=== PATIENT | female | born 1960 | race Caucasian/White ===

== ENCOUNTER 2017-07-25 01:52 | Emergency (ER) | payer OTHER ==
[2017-07-25] MEDS ORDERED: DICYCLOMINE 10 MG CAPSULE PO STA (02:01)
[2017-07-25] MEDS ORDERED: ONDANSETRON 4 MG/2 ML VIAL IVP STA ×2 (02:01→03:53)
[2017-07-25] MEDS ORDERED: SODIUM CHLORIDE 0.9% 1,000 ML IV ONE (02:01)
[2017-07-25 02:24] LABS: BASOPHILS # (AUTO) 0.1 10^3/uL (0.0-0.1); BASOPHILS % (AUTO) 0.8 %; EOSINOPHILS # (AUTO) 0.2 10^3/uL (0.0-0.7); EOSINOPHILS % (AUTO) 1.9 %; LYMPHOCYTES # (AUTO) 1.7 10^3/uL (1.5-3.5); LYMPHOCYTES % (AUTO) 19.4 %; MEAN CORPUSCULAR HEMOGLOBIN 22.6 pg (27.0-31.0); MEAN CORPUSCULAR HGB CONC 30.6 g/dL (32.0-36.0); MEAN CORPUSCULAR VOLUME 73.9 fL (81.0-99.0); MEAN PLATELET VOLUME 8.9 fL (7.9-10.8); MONOCYTES # (AUTO) 0.6 10^3/uL (0.0-1.0); MONOCYTES % (AUTO) 7.2 %; NEUTROPHILS # (AUTO) 6.1 10^3/uL (1.5-6.6); NEUTROPHILS % (AUTO) 70.7 %; PLT - PLATELET COUNT 271 10^3/uL (130-450); RED BLOOD COUNT 3.98 10^6/uL (4.20-5.40); RED CELL DISTRIBUTION WIDTH 17.5 % (12.0-15.0); WHITE BLOOD COUNT 8.6 x10^3/uL (4.8-10.8)
[2017-07-25 02:37] LABS: ALBUMIN 4.4 g/dL (3.2-5.5); ALBUMIN/GLOBULIN RATIO 1.3 (1.0-2.2); BILIRUBIN,TOTAL 0.3 mg/dL (0.2-1.0); CALCIUM 9.3 mg/dL (8.5-10.3); CREATININE 0.7 mg/dL (0.4-1.0); TOTAL PROTEIN 7.7 g/dL (6.7-8.2)
--- NOTE | 2017-07-25 02:40 | ED Physician Documentation ---
PD HPI ABD PAIN - Stated complaint Stated Complaint: ABDOMINAL PAIN - Chief complaint Chief Complaint: Abd Pain - History obtained from History obtained from: Patient - History of Present Illness Timing - onset: Today Timing - details: Gradual onset, Still present Quality: Cramping, Aching, Indigestion Location: Epigastric Worsened by: Eating, Position, Palpation Associated symptoms: Nausea. No: Fever, Vomiting, Hematemesis, Diarrhea, Constipation Recently seen: Not recently seen - Additional information Additional information: patient is a 57 year old female with a history of prior cholecystectomy who is presenting to the emergency department for abdominal pain, nausea and abdominal distention. patient states that she at the [facility] this evening. Shortly after dinner she developed severe abdominal pain. patient tried drinking clarissa seltzer but her symptoms persisted so she came to the emergency department for evaluation. Review of Systems Constitutional: denies: Fever, Chills Cardiac: denies: Chest pain / pressure, Palpitations Respiratory: denies: Dyspnea, Cough, Wheezing GI: reports: Abdominal Pain, Abdominal Swelling, Nausea. denies: Vomiting : denies: Dysuria, Frequency, Hesitancy, Unable to Void Skin: denies: Rash Musculoskeletal: denies: Back pain Immunocompromised: denies: Immunocompromised PD PAST MEDICAL HISTORY - Past Medical History Cardiovascular: Atrial fibrillation, Arrhythmia Respiratory: None Endocrine/Autoimmune: None GI: None SCARFER: None : None HEENT: None Psych: None Musculoskeletal: None Derm: None - Past Surgical History Past Surgical History: Yes General: Cholecystectomy Ortho: Other /SCARFER: section HEENT: Tonsil/Adenoidectomy - Present Medications Home Medications: Ambulatory Orders Medication Instructions Recorded Confirmed Epinephrine [Epipen 2-Laz] 0.3 mg IJ ONCE PRN #1 unit 05/02/15 08/25/15 Estrogen,Con/M-Progest Acet 1.5 mg pe PO DAILY 05/02/15 08/25/15 [Prempro 0.45-1.5 mg Tablet] Sertraline [Zoloft] 25 mg PO DAILY 05/02/15 08/25/15 Zolpidem [Ambien] 5 mg PO HS 05/02/15 08/25/15 L Arginine 1,000 mg PO DAILY 08/25/15 08/25/15 Dicyclomine [Bentyl] 10 mg PO QID #14 capsule 07/25/17 Ondansetron Odt [Zofran] 4 mg TL Q6H PRN #14 tablet 07/25/17 Oxycodone HCl/Acetaminophen 1 - 2 each PO Q6H PRN #10 tablet 07/25/17 [Percocet 5-325 mg Tablet] - Allergies Allergies/Adverse Reactions: Allergies Allergy/AdvReac Type Severity Reaction Status Date / Time acetaminophen [From Vicodin] Allergy Unknown Verified 07/25/17 01:59 hydrocodone bitartrate * Allergy Unknown Verified 07/25/17 01:59 [From Vicodin] Penicillins Allergy Unknown Verified 07/25/17 01:59 Sulfa (Sulfonamide Allergy Unknown Verified 07/25/17 01:59 Antibiotics) PEANUTS AdvReac Anaphylaxis Uncoded 07/25/17 01:59 - Social History Does the pt smoke?: No Smoking Status: Never smoker Does the pt drink ETOH?: Yes Does the pt have substance abuse?: No - Immunizations Immunizations are current?: Yes - POLST Patient has POLST: No PD ED PE NORMAL - General General: Alert and oriented X 3 - HEENT HEENT: Atraumatic - Neck Neck: Supple, no meningeal sign - Cardiac Cardiac: RRR - Respiratory Respiratory: No respiratory distress - Derm Derm: Normal color, Warm and dry - Extremities Extremities: No deformity - Neuro Neuro: Alert and oriented X 3, No motor deficit, Normal speech Eye Opening: Spontaneous Motor: Obeys Commands - Psych Psych: Normal mood PD ED PE EXPANDED - General General: Alert, In Pain - Abdomen Abdomen: Tender to palpation, RUQ, Epigastric, LUQ, Other (obese). No: Rebound Results - Vitals Vitals: Vital Signs - 24 hr 07/25/17 07/25/17 07/25/17 01:56 03:47 05:24 Temperature 36.5 C Heart Rate 74 71 66 Respiratory 20 18 18 Rate Blood Pressure 155/71 H 147/65 H 129/66 O2 Saturation 94 98 95 Oxygen O2 Source Room air - Labs Labs: Laboratory Tests 07/25/17 07/25/17 07/25/17 02:20 02:20 03:50 WBC 8.6 RBC 3.98 L Hgb 9.0 L Hct 29.4 L MCV 73.9 L MCH 22.6 L MCHC 30.6 L RDW 17.5 H Plt Count 271 MPV 8.9 Neut # 6.1 Lymph # 1.7 [place] # 0.6 Eos # 0.2 Baso # 0.1 Absolute Nucleated RBC 0.00 Nucleated RBC % 0.0 Sodium 139 Potassium 3.6 Chloride 103 Carbon Dioxide 27 Anion Gap 9.0 BUN 15 Creatinine 0.7 Estimated GFR (MDRD) 86 L Glucose 110 H Calcium 9.3 Total Bilirubin 0.3 AST 28 ALT 32 Alkaline Phosphatase 69 Total Protein 7.7 Albumin 4.4 Globulin 3.3 Albumin/Globulin Ratio 1.3 Lipase 25 Urine Color YELLOW Urine Clarity CLEAR Urine pH 8.0 H Ur Specific [place] 1.010 Urine Protein NEGATIVE Urine Glucose (UA) NEGATIVE Urine Ketones NEGATIVE Urine Occult Blood NEGATIVE Urine Nitrite NEGATIVE Urine Bilirubin NEGATIVE Urine Urobilinogen 0.2 (NORMAL) Ur Leukocyte Esterase NEGATIVE Ur Microscopic Review NOT INDICATED Urine Culture Comments NOT INDICATED - Rads (name of study) abd x-ray Radiology: Final report received (loops of bowel possible sbo) ct abd pelvis Radiology: Final report received (findings more likely consistent with enteritis , less likely sbo. 5cm by 8cm cystic lesion of right adenexa), See rad report PD MEDICAL DECISION MAKING - ED course Complexity details: reviewed old records, reviewed results, re-evaluated patient , considered differential, d/w patient, d/w family ED course: Patient was seen and examined at bedside. IV access was gained labs were drawn. patient was treated with zofran and a fluid bolus. Patient was also treated with bentyl. abd series was ordered. When patient returned from imaging the results were reviewed. findings were suggestive of possibly sbo. Patient was treated with morphine for pain and CT was ordered. When patient returned from CT the results were reviewed. Findings were more consistent with enteritis as opposed to sbo. patient did have an incidental adenexal findings. The results were reviewed with patient and family. Observation was offered but patient stated that she would rather try at home. patient was given detailed discharge and follow up instructions. Patient had no episodes of vomiting while in the emergency department and was tolerating PO. Departure - Departure Disposition: 01 Home, Self Care Clinical Impression: Enteritis Condition: Good Instructions: ED Gastroenteritis Bacterial Follow-Up: Humberto Mays MD [Primary Care Provider] - Tomorrow Prescriptions: Dicyclomine [Bentyl] 10 mg PO QID #14 capsule Ondansetron Odt [Zofran] 4 mg TL Q6H PRN #14 tablet PRN Reason: Nausea / Vomiting Oxycodone HCl/Acetaminophen [Percocet 5-325 mg Tablet] 1 - 2 each PO Q6H PRN # 10 tablet PRN Reason: pain Comments: Your diagnostics today were consistent with enteritis/food poisoning. There is a chance, but less likely that it a bowel obstruction. If you don't have a bowel movement in the next 24 hours and or you have uncontrollable vomiting you should return to the emergency department for re-evaluation. You were also found to have an ovarian cyst. It is hard to say the exact etiology of your cyst and you will need to call your doctor today to schedule a pelvic ultrasound. Discharge Date/Time: 07/25/17 05:37
--- NOTE | 2017-07-25 02:57 | XRAY Preliminary Report ---
Exam: XR ABDOMEN ACUTE IMPRESSION: Findings concerning for small bowel obstruction. [facility] SITE ID: [id number]
--- NOTE | 2017-07-25 03:04 | XRAY Report ---
EXAM: ABDOMINAL SERIES AND PA CHEST EXAM DATE: 07/25/2017 02:40 AM. CLINICAL HISTORY: Abdominal pain and distention. COMPARISON: Chest x-ray 08/25/2015, CT abdomen 09/09/2010. TECHNIQUE: 2 views abdomen and 1 view chest. FINDINGS: CHEST: Lungs/Pleura: No focal opacities. No effusion or pneumothorax. Mediastinum: Within exam limitations, cardiomediastinal contour is normal. ABDOMEN: Bowel Gas Pattern: Mildly dilated small bowel loops with scattered air-fluid levels. No gross bowel w all thickening seen. Free Air: None. Other: Post-cholecystectomy. IMPRESSION: Findings concerning for small bowel obstruction. [facility] Referring Provider Line: [phone] SITE ID: [id number]
[2017-07-25] MEDS ORDERED: MORPHINE 10 MG/ML VIAL IVP STA (03:09)
[2017-07-25] MEDS ORDERED: IOPAMIDOL-300 100 ML VIAL ONE (03:16)
[2017-07-25] MEDS ORDERED: IOPAMIDOL-300 100 ML VIAL IVP ONE (03:36)
[2017-07-25 03:52] LABS: BILIRUBIN,URINE NEGATIVE (NEGATIVE); GLUCOSE, URINE (UA) NEGATIVE (NEGATIVE); KETONES,URINE (UA) NEGATIVE (NEGATIVE); LEUKOCYTE ESTERASE, URINE NEGATIVE (NEGATIVE); NITRITE,URINE NEGATIVE (NEGATIVE); OCCULT BLOOD,URINE NEGATIVE (NEGATIVE); PROTEIN,URINE NEGATIVE (NEGATIVE); UROBILINOGEN,URINE 0.2 (NORMAL) E.U./dL (NORMAL)
[2017-07-25 03:54] LABS: CLARITY,URINE CLEAR (CLEAR)
[2017-07-25] MEDS ORDERED: ONDANSETRON 4 MG/2 ML VIAL ONE (04:03)
--- NOTE | 2017-07-25 04:17 | CT Report ---
EXAM: CT ABDOMEN AND PELVIS EXAM DATE: 07/25/2017 03:40 AM. CLINICAL HISTORY: Abdominal pain, x-ray worrisome for small bowel obstruction. COMPARISONS: Acute abdominal series, 07/25/2017. CT, 09/09/2010. TECHNIQUE: Routine helical CT imaging was performed through the abdomen and pelvis. IV contrast: 100M L ISOVUE 300. Enteric contrast: No. Reconstructions: Coronal and sagittal. In accordance with CT protocol optimization, one or more of the following dose reduction techniques w ere utilized for this exam: automated exposure control, adjustment of mA and/or KV based on patient s ize, or use of iterative reconstructive technique. FINDINGS: Lung Bases: Mild bibasilar atelectasis. Heart size upper normal. Liver: Possible fatty infiltration. Gallbladder/Bile Ducts: Status post cholecystectomy. Spleen: Normal. Pancreas: Normal. Adrenal Glands: Normal. Kidneys: Normal. No masses or hydronephrosis. Peritoneal Cavity/Bowel: Multiple nonspecific normal caliber fluid-filled small bowel loops with air- fluid levels. No obvious transition zone. There is some liquid stool in the colon as well. No diverti culitis seen. No free air or free fluid. No lymphadenopathy. Appendix is retrocecal and appears angelo l. Pelvic Organs: Cystic lesion in the right adnexa measuring 8.0 x 5.4 cm. Visualized pelvic organs are otherwise unremarkable. Vasculature: Mild atherosclerosis. No aortic aneurysm. Bones: Degenerative changes in the spine with grade 1 degenerative spondylolisthesis at L4-L5. Other: None. IMPRESSION: 1. Multiple normal caliber fluid-filled small bowel loops. These are nonspecific. Mild enteritis coul d have this appearance. Low-grade obstruction not entirely excluded but considered less likely. 2. Appendix appears normal. 3. Cystic lesion in the right adnexa measuring 8.0 x 5.4 cm. Differential diagnosis would include ova yelena cyst, endometrioma, or cystic ovarian neoplasm. Ultrasound could be obtained for further evaluat ion. 4. Possible fatty liver. [facility] Referring Provider Line: [phone] SITE ID: [id number]
[2017-07-25] MEDS ORDERED: HYDROmorphone 2 MG/ML VIAL IVP STA (04:20)
[2017-07-25 05:25] VITALS: BP 129/66
[2017-07-25] MEDS ORDERED: ONDANSETRON ODT 4 MG Prepack 2 TL STA (05:27)
[2017-07-25] MEDS ORDERED: oxyCODONE/ACET 5/325 Prepack 4 PO STA (05:27)
== END 2017-07-25 05:37 | disposition home or self-care (01) ==
LOC: ED 01:52
DX: K52.9 Noninfective gastroenteritis and colitis, unspecified (principal); N83.201 Unspecified ovarian cyst, right side
CPT/HCPCS: 36415; 74022; 74177; 80053; 81003; 83690; 85025; 96374; 96375; 96376; 99283; 99284; A9270; J1170; Q9967; 81001; 87086

== ENCOUNTER 2019-02-01 19:23 | Outpatient (CLI) | payer OTHER | END 2019-02-01 19:24 | disposition short-term general hospital (02) | LOC: EMS 19:23 | PROVIDERS: ATTEND Surgery | DX: R07.9 Chest pain, unspecified (principal); R11.2 Nausea with vomiting, unspecified; R19.7 Diarrhea, unspecified | CPT/HCPCS: A0425; A0427 ==

== ENCOUNTER 2019-05-07 19:43 | Outpatient (CLI) | payer OTHER | END 2019-05-07 19:44 | disposition critical access hospital (66) | LOC: EMS 19:43 | PROVIDERS: ATTEND Surgery | DX: R00.0 Tachycardia, unspecified (principal); R10.13 Epigastric pain; M54.9 Dorsalgia, unspecified | CPT/HCPCS: A0425; A0429 ==

== ENCOUNTER 2019-08-08 18:52 | Outpatient (CLI) | payer OTHER | END 2019-08-08 18:53 | disposition short-term general hospital (02) | LOC: EMS 18:52 | PROVIDERS: ATTEND Surgery | DX: R10.9 Unspecified abdominal pain (principal); R11.2 Nausea with vomiting, unspecified | CPT/HCPCS: A0425; A0427 ==

== ENCOUNTER 2019-11-13 00:25 | Inpatient (IN) | payer OTHER ==
--- NOTE | 2019-11-13 00:28 | ED Physician Documentation ---
History of Present Illness - Stated complaint Stated Complaint: AB PX - History obtained from History obtained from: Patient - Additonal information Additional information: Patient is a 59-year-old female who presents with a chief complaint of abdominal pain. The patient reports that she has had previous small bowel obstructions and reports this feels similar in nature with nausea and vomiting and not passing gas. She has had a previous cholecystectomy as well as multiple sections. She denies fevers or dysuria or flank pain or syncope.Patient denies chest pain or shortness of breath. Review of Systems Constitutional: reports: Reviewed and negative Eyes: reports: Reviewed and negative Ears: reports: Reviewed and negative Nose: reports: Reviewed and negative Throat: reports: Reviewed and negative Cardiac: reports: Reviewed and negative Respiratory: reports: Reviewed and negative GI: reports: Abdominal Pain, Nausea, Vomiting : reports: Reviewed and negative Skin: reports: Reviewed and negative Musculoskeletal: reports: Reviewed and negative Neurologic: reports: Reviewed and negative Psychiatric: reports: Reviewed and negative Endocrine: reports: Reviewed and negative Immunocompromised: reports: Reviewed and negative PD PAST MEDICAL HISTORY - Past Medical History Cardiovascular: Atrial fibrillation, Arrhythmia Respiratory: None Endocrine/Autoimmune: None GI: None ROSTER CLERK: None : None HEENT: None Psych: None Musculoskeletal: None Derm: None - Past Surgical History Past Surgical History: Yes General: Cholecystectomy Ortho: Other /ROSTER CLERK: section HEENT: Tonsil/Adenoidectomy - Present Medications Home Medications: Ambulatory Orders Medication Instructions Recorded Confirmed EPINEPHrine [Epipen 2-Laz] 0.3 mg IJ ONCE PRN #1 unit 05/02/15 08/25/15 Estrogen,Con/M-Progest Acet 1.5 mg pe PO DAILY 05/02/15 08/25/15 [Prempro 0.45-1.5 mg Tablet] Sertraline [Zoloft] 25 mg PO DAILY 05/02/15 08/25/15 Zolpidem [Ambien] 5 mg PO HS 05/02/15 08/25/15 L Arginine 1,000 mg PO DAILY 08/25/15 08/25/15 Dicyclomine [Bentyl] 10 mg PO QID #14 capsule 07/25/17 Ondansetron Odt [Zofran] 4 mg TL Q6H PRN #14 tablet 07/25/17 Oxycodone HCl/Acetaminophen 1 - 2 each PO Q6H PRN #10 tablet 07/25/17 [Percocet 5-325 mg Tablet] - Allergies Allergies/Adverse Reactions: Allergies Allergy/AdvReac Type Severity Reaction Status Date / Time hydrocodone bitartrate * Allergy Unknown Verified 11/13/19 00:35 [From Vicodin] Penicillins Allergy Unknown Verified 11/13/19 00:35 Sulfa (Sulfonamide Allergy Unknown Verified 11/13/19 00:35 Antibiotics) PEANUTS AdvReac Anaphylaxis Uncoded 11/13/19 00:35 - Social History Does the pt smoke?: No Smoking Status: Never smoker Does the pt drink ETOH?: Yes Does the pt have substance abuse?: No - Immunizations Immunizations are current?: Yes - POLST Patient has POLST: No PD ED PE NORMAL - Vitals Vital signs reviewed: Yes - General General: Alert and oriented X 3, No acute distress, Well developed/nourished - HEENT HEENT: PERRL, Moist mucous membranes - Neck Neck: Supple, no meningeal sign - Cardiac Cardiac: RRR, No murmur, Strong equal pulses - Respiratory Respiratory: No respiratory distress, Clear bilaterally - Abdomen Abdomen: Normal bowel sounds, Soft, Other - Female Female : Pt declined - Rectal Rectal: Pt declined - Back Back: No CVA TTP, No spinal TTP - Derm Derm: Normal color, Warm and dry, No rash - Extremities Extremities: No deformity, No tenderness to palpate, Normal ROM s pain, No edema, No calf tenderness / cord - Neuro Neuro: Alert and oriented X 3, dental laboratory supervisor 2-12 intact, No motor deficit, No sensory deficit, Normal speech - Psych Psych: Normal mood, Normal affect Results - Vitals Vitals: Vital Signs - 24 hr 11/13/19 11/13/19 11/13/19 00:33 02:35 04:11 Temperature 36.8 C Heart Rate 71 70 69 Respiratory 24 18 17 Rate Blood Pressure 150/66 H 132/62 H 134/63 H O2 Saturation 98 98 98 Oxygen O2 Source Room air - EKG (time done) 02:05 Rate: Other (no stemi) - Labs Labs: Laboratory Tests 11/13/19 11/13/19 11/13/19 02:10 02:10 02:10 WBC 12.1 H RBC 3.44 L Hgb 8.3 L Hct 27.9 L MCV 81.1 MCH 24.1 L MCHC 29.7 L RDW 16.5 H Plt Count 221 MPV 10.4 Neut # (Auto) 10.4 H Lymph # (Auto) 0.9 L [place] # (Auto) 0.7 Eos # (Auto) 0.1 Baso # (Auto) 0.1 Absolute Nucleated RBC 0.00 Nucleated RBC % 0.0 PT 11.3 INR 1.0 APTT 28.4 Sodium 140 Potassium 4.0 Chloride 109 Carbon Dioxide 22 Anion Gap 9.0 BUN 18 Creatinine 0.7 Estimated GFR (MDRD) 85 L Glucose 117 H Lactic Acid Calcium 8.8 Total Bilirubin 0.5 AST 26 ALT 39 Alkaline Phosphatase 69 Total Creatine Kinase 139 Troponin I High Sens Total Protein 6.4 L Albumin 3.8 Globulin 2.6 Albumin/Globulin Ratio 1.5 Lipase 32 Urine Color Urine Clarity Urine pH Ur Specific [place] Urine Protein Urine Glucose (UA) Urine Ketones Urine Occult Blood Urine Nitrite Urine Bilirubin Urine Urobilinogen Ur Leukocyte Esterase Urine RBC Urine WBC Ur Squamous Epith Cells Urine Bacteria Ur Microscopic Review Urine Culture Comments Urine HCG, Qual 11/13/19 11/13/19 11/13/19 02:10 02:10 03:30 WBC RBC Hgb Hct MCV MCH MCHC RDW Plt Count MPV Neut # (Auto) Lymph # (Auto) [place] # (Auto) Eos # (Auto) Baso # (Auto) Absolute Nucleated RBC Nucleated RBC % PT INR APTT Sodium Potassium Chloride Carbon Dioxide Anion Gap BUN Creatinine Estimated GFR (MDRD) Glucose Lactic Acid 1.1 Calcium Total Bilirubin AST ALT Alkaline Phosphatase Total Creatine Kinase Troponin I High Sens 4.6 Total Protein Albumin Globulin Albumin/Globulin Ratio Lipase Urine Color YELLOW Urine Clarity CLEAR Urine pH 6.0 Ur Specific [place] 1.015 Urine Protein NEGATIVE Urine Glucose (UA) NEGATIVE Urine Ketones NEGATIVE Urine Occult Blood NEGATIVE Urine Nitrite NEGATIVE Urine Bilirubin NEGATIVE Urine Urobilinogen 0.2 (NORMAL) Ur Leukocyte Esterase TRACE H Urine RBC 0-5 Urine WBC 0-3 Ur Squamous Epith Cells FEW Squamous Urine Bacteria Rare Ur Microscopic Review INDICATED Urine Culture Comments INDICATED Urine HCG, Qual NEGATIVE PD MEDICAL DECISION MAKING - ED course Complexity details: considered differential (history is concerning for SBO) - Consults Consults: Discussed case with (dr. waterman, surgeon, will see as consult. also spoke with hospitalist dr. [email or web address] who agreed to accept this patient.) Departure - Departure Disposition: 66 [facility] DC/Xfer Clinical Impression: SBO (small bowel obstruction) Condition: Stable
[2019-11-13] MEDS ORDERED: fentaNYL 100 MCG/2 ML VIAL IVP STA ×2 (01:48→04:07)
[2019-11-13] MEDS ORDERED: ONDANSETRON 4 MG/2 ML VIAL IVP STA ×2 (01:48→03:27)
[2019-11-13] MEDS ORDERED: SODIUM CHLORIDE 0.9% 1,000 ML IV STA (01:48)
[2019-11-13 02:16] LABS: BASOPHILS # (AUTO) 0.1 10^3/uL (0.0-0.1); BASOPHILS % (AUTO) 0.4 %; EOSINOPHILS # (AUTO) 0.1 10^3/uL (0.0-0.7); EOSINOPHILS % (AUTO) 0.7 %; HGB - HEMOGLOBIN 8.3 g/dL (12.0-16.0); LYMPHOCYTES # (AUTO) 0.9 10^3/uL (1.5-3.5); LYMPHOCYTES % (AUTO) 7.2 %; MEAN CORPUSCULAR HEMOGLOBIN 24.1 pg (27.0-31.0); MEAN CORPUSCULAR HGB CONC 29.7 g/dL (32.0-36.0); MEAN CORPUSCULAR VOLUME 81.1 fL (81.0-99.0); MEAN PLATELET VOLUME 10.4 fL (7.9-10.8); MONOCYTES # (AUTO) 0.7 10^3/uL (0.0-1.0); MONOCYTES % (AUTO) 5.5 %; NEUTROPHILS # (AUTO) 10.4 10^3/uL (1.5-6.6); NEUTROPHILS % (AUTO) 85.6 %; PLT - PLATELET COUNT 221 10^3/uL (130-450); RED BLOOD COUNT 3.44 10^6/uL (4.20-5.40); RED CELL DISTRIBUTION WIDTH 16.5 % (12.0-15.0); WHITE BLOOD COUNT 12.1 x10^3/uL (4.8-10.8)
[2019-11-13 02:23] LABS: PT - PROTHROMBIN TIME 11.3 secs (9.9-12.6)
[2019-11-13 02:29] LABS: ALBUMIN 3.8 g/dL (3.2-5.5); ALBUMIN/GLOBULIN RATIO 1.5 (1.0-2.2); BILIRUBIN,TOTAL 0.5 mg/dL (0.2-1.0); CALCIUM 8.8 mg/dL (8.5-10.3); CREATININE 0.7 mg/dL (0.4-1.0); TOTAL PROTEIN 6.4 g/dL (6.7-8.2)
[2019-11-13 02:30] LABS: PARTIAL THROMBOPLASTIN TIME 28.4 secs (24.9-33.3)
[2019-11-13] MEDS ORDERED: IOVERSOL 320 100 ML VIAL IVP ONE ×2 (03:08→04:59)
[2019-11-13 03:40] LABS: BILIRUBIN,URINE NEGATIVE (NEGATIVE); GLUCOSE, URINE (UA) NEGATIVE (NEGATIVE); KETONES,URINE (UA) NEGATIVE (NEGATIVE); LEUKOCYTE ESTERASE, URINE TRACE (NEGATIVE); NITRITE,URINE NEGATIVE (NEGATIVE); OCCULT BLOOD,URINE NEGATIVE (NEGATIVE); PROTEIN,URINE NEGATIVE (NEGATIVE); UROBILINOGEN,URINE 0.2 (NORMAL) E.U./dL (NORMAL)
[2019-11-13 03:43] LABS: CLARITY,URINE CLEAR (CLEAR); HCG UR QUAL NEGATIVE
[2019-11-13 03:46] LABS: BACTERIA,URINE Rare /HPF (None Seen); RBC,URINE 0-5 /HPF (0-5); SQUAMOUS EPITHELIAL CELL,UR FEW Squamous (<= Few)
[2019-11-13] MEDS ORDERED: LIDOCAINE TOPICAL 4% 50 ML BOTTLE MM STA (05:11)
[2019-11-13] MEDS ORDERED: LORazepam 2 MG/ML VIAL IVP STA (05:13)
[2019-11-13] MEDS ORDERED: SODIUM CHLORIDE FLUSH 0.9% 10 ML SYRINGE IVP PRN (05:18)
[2019-11-13] MEDS ORDERED: HYDROmorphone 1 MG/ML CARPUJECT IVP PRN (05:24)
--- NOTE | 2019-11-13 05:24 | HISTORY & PHYSICAL EXAMINATION ---
Chief Complaint - Chief Complaint Chief Complaint: abdominal pain History of Present Illness - Admitted From Admitted From:: [facility] - History Obtained From Records Reviewed: Yes History obtained from: Patient - History of Present Illness HPI Comment/Other: Patient is a 59-year-old female with history of multiple abdominal surgeries and subsequently history of multiple small bowel obstructions who presented to the ED with complaint of abdominal pain. This started around 5 PM today. She describes it like a ball of bad sharp pain in her upper abdomen. She experienced similar episodes in November 2018, January 2019, May 2019 and August 2019. During her last episode she was taken to [facility].She had some homemade pizza before her pain intensified today. She has vomited approximately 6 times. She Denies chest pain, dyspnea, fever or chills. Work- up in the ED included a CT of the abdomen pelvis which showed early small bowel obstruction. She also had a white blood cell count of 12. Dr. Tran Brian with general surgery was contacted by the ED and is agreeable to see the patient in consult later in the day. History - Past Medical History Cardiovascular: reports: Atrial fibrillation, Arrhythmia Respiratory: reports: None Endocrine/Autoimmune: reports: None GI: reports: GERD VP & GENERAL COUNSEL: reports: None : reports: None HEENT: reports: None Psych: reports: None Musculoskeletal: reports: None Derm: reports: None MRSA Hx?: No - Past Surgical History General: reports: Cholecystectomy Ortho: reports: Other /VP & GENERAL COUNSEL: reports: section, Dilation and currettage, Oophrectomy (right) HEENT: reports: Tonsil/Adenoidectomy - Family & Social History Family History: Father: , Cancer (bladder cancer) Living arrangement: At home Living Situation: With spouse/s.o. Social History Notes: She does not use tobacco products or recreational substances. She drinks occasionally. - POLST Patient has POLST: No POLST Status: Full Code Meds/Allgy - Home Medications Home Medications: Ambulatory Orders Medication Instructions Recorded Confirmed EPINEPHrine [Epipen 2-Laz] 0.3 mg IJ ONCE PRN #1 unit 05/02/15 08/25/15 Estrogen,Con/M-Progest Acet 1.5 mg pe PO DAILY 05/02/15 08/25/15 [Prempro 0.45-1.5 mg Tablet] Sertraline [Zoloft] 25 mg PO DAILY 05/02/15 08/25/15 Zolpidem [Ambien] 5 mg PO HS 05/02/15 08/25/15 L Arginine 1,000 mg PO DAILY 08/25/15 08/25/15 Dicyclomine [Bentyl] 10 mg PO QID #14 capsule 07/25/17 Ondansetron Odt [Zofran] 4 mg TL Q6H PRN #14 tablet 07/25/17 Oxycodone HCl/Acetaminophen 1 - 2 each PO Q6H PRN #10 tablet 07/25/17 [Percocet 5-325 mg Tablet] - Allergies Allergies/Adverse Reactions: Allergies Allergy/AdvReac Type Severity Reaction Status Date / Time hydrocodone bitartrate * Allergy Unknown Verified 11/13/19 00:35 [From Vicodin] Penicillins Allergy Unknown Verified 11/13/19 00:35 Sulfa (Sulfonamide Allergy Unknown Verified 11/13/19 00:35 Antibiotics) PEANUTS AdvReac Anaphylaxis Uncoded 11/13/19 00:35 Review of Systems - Constitutional Constitutional: denies: Fatigue, Fever - Eyes Eyes: denies: Pain - Ears, Nose & Throat Ears, Nose & Throat: denies: Ear pain - Cardiovascular Cariovascular: denies: Irregular heart rate, Chest pain, Edema, Lightheadedness, Syncope - Respiratory Respiratory: denies: Cough, Sputum production, Wheezing - Gastrointestinal Gastrointestinal: reports: Abdominal pain, Nausea, Vomiting. denies: Abdominal distention, Constipation, Diarrhea - Genitourinary Genitourinary: denies: Dysuria, Frequency, Urgency, Hematuria - Musculoskeletal Musculoskeletal: denies: Muscle pain, Back pain, Muscle aches - Integumentary Integumentary: denies: Rash, Pruritis, Lesions - Neurological Neurological: denies: General weakness, Focal weakness, Headache - Psychiatric Psychiatric: reports: Anxiety. denies: Depression - Endocrine Endocrine: denies: Polyuria, Polydypsia - Hematologic/Lymphatic Hematologic/Lymphatic: denies: Anemia, Bruising Prior Level of Functionality: Patient is independent of activities of daily living Exam - Vital Signs Vital Signs: Vital Signs x48h Temp Pulse Resp BP Pulse Ox 11/13/19 04:11 69 17 134/63 H 98 11/13/19 02:35 70 18 132/62 H 98 11/13/19 00:33 36.8 C 71 24 150/66 H 98 - Physical Exam General Appearance: positive: Alert, Mild distress, Moderate distress Eyes Bilateral: positive: PERRL, EOMI ENT: positive: No signs of dehydration Neck: positive: No JVD, Trachea midline Respiratory: positive: Chest non-tender, No respiratory distress, Breath sounds nml. negative: Wheezes, Rales, Rhonchi Cardiovascular: positive: Regular rate & rhythm, No murmur Abdomen: positive: Nml bowel sounds, Tenderness. negative: Guarding, Rebound Back: positive: Nml inspection Skin: positive: Color nml, No rash, Warm, Dry Extremities: positive: Non-tender, Full ROM, Nml appearance, No pedal edema Neurologic/Psychiatric: positive: Oriented x3, Mood/affect nml Conclusion/Plan - Problem List (1) SBO (small bowel obstruction) Conclusion/Plan: Patient is n.p.o. IV hydration with normal saline at 125 mils per hour. Pain management with Dilaudid 1 mg every 2 hours as needed NG tube placed in the ED General surgery Dr. Tran Brian has been consulted. (2) Atrial fibrillation Conclusion/Plan: Patient is currently in normal sinus rhythm.Allison will monitor. Patient does not take any medication. Qualifiers: Atrial fibrillation type: paroxysmal Qualified Code(s): I48.0 - Paroxysmal atrial fibrillation (3) Anxiety Conclusion/Plan: On sertraline (4) Insomnia Conclusion/Plan: On zolpidem - Lab Results Fish Bones: 11/13/19 02:10 11/13/19 02:10 Core Measures - Anticipated LOS I expect patient to be DC'd or transferred within 96 hours.: Yes - DVT/VTE - Prophylaxis VTE/DVT Device ordered at admit?: Yes VTE/DVT Prophylaxis med ordered at admit?: Yes
[2019-11-13] MEDS ORDERED: SODIUM CHLORIDE INHALATION 3 ML NEB ONE (05:31)
[2019-11-13] MEDS ORDERED: SODIUM CHLORIDE 0.9% 1,000 ML IV SCH ×2 (06:00)
[2019-11-13] MEDS: PANTOPRAZOLE 40 MG VIAL IVP SCH (06:11)
[2019-11-13] MEDS: PHENOL THROAT SPRAY 177 ML MM PRN ×4 (06:54→18:40)
--- NOTE | 2019-11-13 07:55 | XRAY Report ---
PROCEDURE: Chest 1 View X-Ray INDICATIONS: Chest pain TECHNIQUE: One view of the chest was acquired. COMPARISON: 08/25/2015 FINDINGS: Surgical changes and devices: None. Lungs and pleura: No pleural effusions or pneumothorax. Lungs are clear. Mediastinum: Mediastinal contours appear normal. Heart size is normal. Bones and chest wall: No suspicious bony lesions. Overlying soft tissues appear unremarkable. IMPRESSION: No acute cardiopulmonary disease process. Reviewed by: Cata Berumen MD, PhD on 11/13/2019 7:53 AM PDT Approved by: Cata Berumen MD, PhD on 11/13/2019 7:53 AM PDT Station ID: [id number]
--- NOTE | 2019-11-13 08:27 | XRAY Report ---
PROCEDURE: Chest for Line Placement INDICATIONS: ng tube placement TECHNIQUE: One view of the chest was acquired. COMPARISON: Chest xray 11/13/19 FINDINGS: Surgical changes and devices: Nasogastric tube is present, with side port at the GE junction. Lungs and pleura: No pleural effusions or pneumothorax. Lungs are clear. Mediastinum: Mediastinal contours appear normal. Heart size is mildly enlarged. Bones and chest wall: No suspicious bony lesions. Overlying soft tissues appear unremarkable. IMPRESSION: Nasogatric tube as above. 3-5 cm advancement is recommended. The above findings are concordant with preliminary report. Reviewed by: Dai Warner MD on 11/13/2019 8:25 AM PDT Approved by: Dai Warner MD on 11/13/2019 8:25 AM PDT Station ID: [id number]
[2019-11-13 09:06] LABS: ABSOLUTE RETICS # AUTO 0.068 10^6/uL (0.020-0.110); RED BLOOD COUNT 3.49 10^6/uL (4.20-5.40)
[2019-11-13 09:20] LABS: % IRON SATURATION 3 % (20-50); IRON 13 ug/dL (28-170); TOTAL IRON BINDING CAPACITY 505 ug/dL (250-450); TRANSFERRIN 361 mg/dL (192-382)
[2019-11-13] MEDS: SODIUM CHLORIDE FLUSH 0.9% 10 ML SYRINGE IVP SCH ×3 (09:32→23:58)
[2019-11-13 09:36] LABS: FERRITIN 6.7 ng/mL (11.0-306.8)
[2019-11-13] MEDS ORDERED: HYDROmorphone 0.5 MG/0.5 ML SYRINGE IVP PRN (10:53)
[2019-11-13] MEDS: D5.45NS W/20 MEQ KCL 1,000 ML IV SCH ×2 (11:20→21:02)
--- NOTE | 2019-11-13 12:37 | CT Report ---
PROCEDURE: Abdomen/Pelvis W INDICATIONS: abd pain CONTRAST: IV CONTRAST: Optiray 320 ml: 100 PO CONTRAST: *NO PO CONTRAST TECHNIQUE: After the administration of intravenous contrast, 5 mm thick sections acquired from the diaphragms to the symphysis. 5 mm thick coronal and sagittal reformats were acquired. For radiation dose reducti on, the following was used: automated exposure control, adjustment of mA and/or kV according to ruma ent size. COMPARISON: None. FINDINGS: Image quality: Excellent. ABDOMEN: Lung bases: Lung bases are clear. Heart size is normal. Solid organs: Liver is enlarged with steatosis. The spleen is normal in size and enhancement. Gall bladder has been removed. Biliary system is non dilated. Pancreas enhances normally. No adrenal no dules. Kidneys demonstrate normal size and enhancement, without hydronephrosis. Peritoneum and bowel: Small duodenal diverticulum is present. There is mildly dilated, fluid filled loops of small bowel, measuring 3.4 cm. No free fluid or air. Nodes and vessels: No retroperitoneal or mesenteric adenopathy by size criteria. Aorta and inferior vena cava are normal in size. Miscellaneous: No ventral hernias. Moderate hiatal hernia. PELVIS: Genitourinary: Bladder wall thickness is normal. Miscellaneous: No inguinal hernias or adenopathy. 33 mm left lipoma in the vastus lateralis muscle. . Bones: No suspicious bony lesions. No vertebral body compression fractures. IMPRESSION: 1. Mildly prominent fluid-filled loops of small bowel possibly representing ileus or developing parti al small bowel obstruction. The above findings are concordant with preliminary report. Reviewed by: Dai Warner MD on 11/13/2019 12:36 PM PDT Approved by: Dai Warner MD on 11/13/2019 12:36 PM PDT Station ID: [id number]
[2019-11-13] MEDS ORDERED: ACETAMINOPHEN 325 MG TABLET PO PRN (13:19)
--- NOTE | 2019-11-13 13:57 | CONSULTATION NOTE ---
Referring Provider Name of Referring Provider:: [facility] Consult Date: 11/13/19 Chief Complaint - Chief Complaint Chief Complaint: Abdominal pain with nausea and vomiting History of Present Illness - Admitted From Admitted From:: ED - History Obtained From Records Reviewed: Provider's notes History obtained from: Providers and records. Exam Limitations: Patient very sleepy and not able to fully cooperate after receiving medicat - History of Present Illness HPI Comment/Other: Junie is a 59 year old lady who was admitted through the ED last evening with a diagnosis of partial small bowel obstruction. She reports multple similar episodes in the past and all have resolved without surgical intervention. This is her 3rd or 4th episode this year and she was transferred to [place] at the time of her last episode. History - Past Medical History Cardiovascular: reports: Atrial fibrillation, Arrhythmia Respiratory: reports: None Neuro: reports: None Endocrine/Autoimmune: reports: None GI: reports: GERD MINING ENGINEER: reports: None : reports: None HEENT: reports: None Psych: reports: None Musculoskeletal: reports: None Derm: reports: None MRSA Hx?: No - Past Surgical History General: reports: Cholecystectomy Ortho: reports: Other /MINING ENGINEER: reports: section, Dilation and currettage, Oophrectomy HEENT: reports: Tonsil/Adenoidectomy - Family & Social History Family History: Father: , Cancer (bladder cancer) Living arrangement: At home Living Situation: With spouse/s.o. Social History Notes: She does not use tobacco products or recreational substances. She drinks occasionally. - POLST Patient has POLST: No POLST Status: Full Code Meds/Allgy - Home Medications Home Medications: Ambulatory Orders Medication Instructions Recorded Confirmed EPINEPHrine [Epipen 2-Laz] 0.3 mg IJ ONCE PRN #1 unit 05/02/15 08/25/15 Estrogen,Con/M-Progest Acet 1.5 mg pe PO DAILY 05/02/15 08/25/15 [Prempro 0.45-1.5 mg Tablet] Sertraline [Zoloft] 25 mg PO DAILY 05/02/15 08/25/15 Zolpidem [Ambien] 5 mg PO HS 05/02/15 08/25/15 L Arginine 1,000 mg PO DAILY 08/25/15 08/25/15 Dicyclomine [Bentyl] 10 mg PO QID #14 capsule 07/25/17 Ondansetron Odt [Zofran] 4 mg TL Q6H PRN #14 tablet 07/25/17 Oxycodone HCl/Acetaminophen 1 - 2 each PO Q6H PRN #10 tablet 07/25/17 [Percocet 5-325 mg Tablet] - Allergies Allergies/Adverse Reactions: Allergies Allergy/AdvReac Type Severity Reaction Status Date / Time peanut Allergy Severe Anaphylaxis Verified 11/13/19 08:35 hydrocodone bitartrate * Allergy Unknown Verified 11/13/19 00:35 [From Vicodin] Penicillins Allergy Unknown Verified 11/13/19 00:35 Sulfa (Sulfonamide Allergy Unknown Verified 11/13/19 00:35 Antibiotics) Review of Systems - Constitutional Constitutional: reports: Fatigue, Malaise, Weakness, Poor appetite. denies: Fever, Chills - Eyes Eyes: denies: Pain, Blurred vision - Ears, Nose & Throat Ears, Nose & Throat: denies: Tinnitus - Cardiovascular Cariovascular: denies: Irregular heart rate, Palpitations - Respiratory Respiratory: denies: Cough, Wheezing - Gastrointestinal Gastrointestinal: reports: Abdominal pain, Nausea, Vomiting - Genitourinary Genitourinary: denies: Dysuria, Frequency Exam - Vital Signs Reviewed Vital Signs: Yes Vital Signs: Vital Signs x48h Temp Pulse Pulse Resp BP Pulse Ox 11/13/19 11:31 36.2 C L 60 18 99 11/13/19 11:26 36.2 C L 56 L 18 129/54 L 99 11/13/19 07:38 36.8 C 60 17 135/56 H 94 11/13/19 06:12 36.9 C 68 18 141/56 H 97 - Physical Exam General Appearance: positive: No acute distress, Lethargic Eyes Bilateral: positive: Normal inspection ENT: positive: Pharynx nml (NG tube in place) Neck: positive: Nml inspection, Trachea midline, Thyromegaly Respiratory: positive: Chest non-tender, Breath sounds nml Cardiovascular: positive: Regular rate & rhythm Peripheral Pulses: positive: 1+ Abdomen: positive: Other (soft, + bowel sounds, mild global tenderness to palaption. Nausea has resolved) Skin: positive: Color nml, No rash Conclusion and Plan - Lab Results Laboratory Results 11/13/19 11:14: POC Whole Bld Glucose 87 11/13/19 03:30: Urine Color YELLOW, Urine Clarity CLEAR, Urine pH 6.0, Ur Specific Henry 1.015, Urine Protein NEGATIVE, Urine Glucose (UA) NEGATIVE, Urine Ketones NEGATIVE, Urine Occult Blood NEGATIVE, Urine Nitrite NEGATIVE, Urine Bilirubin NEGATIVE, Urine Urobilinogen 0.2 (NORMAL), Ur Leukocyte Esterase TRACE H, Urine RBC 0-5, Urine WBC 0-3, Ur Squamous Epith Cells FEW Squamous, Urine Bacteria Rare, Ur Microscopic Review INDICATED, Urine Culture Comments INDICATED, Urine HCG, Qual NEGATIVE 11/13/19 02:10: Lactate Dehydrogenase 171 11/13/19 02:10: Ferritin 6.7 L, Vitamin B12 1731 H 11/13/19 02:10: Iron 13 L, TIBC 505 H, % Saturation 3 L, Transferrin 361 11/13/19 02:10: RBC 3.49 L, Reticulocyte % (Auto) 1.96, Absolute Retic 0.068 11/13/19 02:10: Troponin I High Sens 4.6 11/13/19 02:10: Lactic Acid 1.1 11/13/19 02:10: Sodium 140, Potassium 4.0, Chloride 109, Carbon Dioxide 22, Anion Gap 9.0, BUN 18, Creatinine 0.7, Estimated GFR (MDRD) 85 L, Glucose 117 H, Calcium 8.8, Total Bilirubin 0.5, AST 26, ALT 39, Alkaline Phosphatase 69, Total Creatine Kinase 139, Total Protein 6.4 L, Albumin 3.8, Globulin 2.6, Albumin/Globulin Ratio 1.5, Lipase 32 11/13/19 02:10: PT 11.3, INR 1.0, APTT 28.4 11/13/19 02:10: WBC 12.1 H, RBC 3.44 L, Hgb 8.3 L, Hct 27.9 L, MCV 81.1, MCH 24.1 L, MCHC 29.7 L, RDW 16.5 H, Plt Count 221, MPV 10.4, Neut # (Auto) 10.4 H, Lymph # (Auto) 0.9 L, [place] # (Auto) 0.7, Eos # (Auto) 0.1, Baso # (Auto) 0.1, Absolute Nucleated RBC 0.00, Nucleated RBC % 0.0 - Diagnostic Imaging Results Diagnostic Imaging Results: positive: Final report reviewed Diagnostic Imaging Results Comments: CT scan of the abdomen and pelvis last evening. 1. Mildly prominent fluid-filled loops of small bowel possibly representing ileus or developing partial small bowel obstruction. The above findings are concordant with preliminary report. - Diagnosis Diagnosis: Possible recurrent small bowel obstruction. - Plan Plan: 1. Recurrent episodes treated at different facilities. Will try to obtain records from Prov Ev 2. Agree with bowel rest and NGT decompression. 3. Recommend UGI with SBFT.
[2019-11-13] MEDS: BENZOCAINE/MENTHOL LOZENGE MM PRN ×5 (15:01→23:57)
[2019-11-13] MEDS ORDERED: hydrOXYzine PAMOATE 25 MG CAPSULE PO PRN (15:46)
[2019-11-13] MEDS: ONDANSETRON 4 MG/2 ML VIAL IVP PRN ×2 (16:32→21:02)
[2019-11-13] MEDS: NYSTATIN POWDER 15 GM TOP PRN (17:20)
[2019-11-13] MEDS: FERROUS SULFATE 325 MG TABLET PO SCH (17:20)
[2019-11-13] MEDS: HYDROCORTISONE 1% OINTMENT 28 GM TUBE TOP PRN (17:20)
[2019-11-13] MEDS: SERTRALINE 50 MG TABLET PO SCH (17:20)
--- NOTE | 2019-11-13 17:33 | PHARMACY PROGRESS NOTE ---
- Best Possible Medication History Admit Date and Time: 11/13/19 0518 Processed by: Pharmacy Medication History completed: Yes Patient Interview: Completed Secondary Source(s): Pharmacy records, Insurance records (PATIENT INTERVIEWED BY DENTAL SURGEON. PATIENT ABLE TO CONFIRM HOME MEDICATIONS) As the person ultimately responsible for medication therapy, providers are able to order a medication from an existing home medication list in [facility] via the "Reconcile Routine" prior to Confirmation of that medication by donor support technician. Such practice is discouraged except when the physician, in their clinical judgment, deems that a medical need exists for a medication without regard to previous use.
[2019-11-14] MEDS: PHENOL THROAT SPRAY 177 ML MM PRN ×2 (01:23→11:11)
[2019-11-14] MEDS ORDERED: LORazepam 2 MG/ML VIAL IVP STA (01:43)
[2019-11-14] MEDS: NYSTATIN POWDER 15 GM TOP PRN (02:01)
[2019-11-14 05:45] LABS: BASOPHILS % (AUTO) 0.5 %; EOSINOPHILS # (AUTO) 0.2 10^3/uL (0.0-0.7); EOSINOPHILS % (AUTO) 2.9 %; HGB - HEMOGLOBIN 8.4 g/dL (12.0-16.0); LYMPHOCYTES # (AUTO) 1.3 10^3/uL (1.5-3.5); LYMPHOCYTES % (AUTO) 22.5 %; MEAN CORPUSCULAR HEMOGLOBIN 24.1 pg (27.0-31.0); MEAN CORPUSCULAR HGB CONC 29.4 g/dL (32.0-36.0); MEAN CORPUSCULAR VOLUME 81.9 fL (81.0-99.0); MEAN PLATELET VOLUME 10.9 fL (7.9-10.8); MONOCYTES # (AUTO) 0.5 10^3/uL (0.0-1.0); MONOCYTES % (AUTO) 9.2 %; NEUTROPHILS # (AUTO) 3.8 10^3/uL (1.5-6.6); NEUTROPHILS % (AUTO) 64.7 %; PLT - PLATELET COUNT 223 10^3/uL (130-450); RED BLOOD COUNT 3.49 10^6/uL (4.20-5.40); RED CELL DISTRIBUTION WIDTH 16.9 % (12.0-15.0); WHITE BLOOD COUNT 5.9 x10^3/uL (4.8-10.8)
[2019-11-14 05:53] LABS: CALCIUM 8.8 mg/dL (8.5-10.3); CREATININE 0.7 mg/dL (0.4-1.0)
[2019-11-14] MEDS: PANTOPRAZOLE 40 MG VIAL IVP SCH (06:22)
[2019-11-14] MEDS: D5.45NS W/20 MEQ KCL 1,000 ML IV SCH (06:27)
[2019-11-14] MEDS: SERTRALINE 50 MG TABLET PO SCH (08:35)
[2019-11-14] MEDS: FERROUS SULFATE 325 MG TABLET PO SCH ×2 (08:35→16:39)
[2019-11-14] MEDS: SODIUM CHLORIDE FLUSH 0.9% 10 ML SYRINGE IVP SCH ×2 (08:36→16:25)
[2019-11-14] MEDS: BENZOCAINE/MENTHOL LOZENGE MM PRN ×4 (08:37→14:59)
[2019-11-14] MEDS: HYDROCORTISONE 1% OINTMENT 28 GM TUBE TOP PRN ×2 (08:51)
[2019-11-14] MEDS: ONDANSETRON 4 MG/2 ML VIAL IVP PRN (11:08)
[2019-11-14] MEDS ORDERED: DIATR MEGLU/DIATRIZOATE SODIUM 120 ML BOTTLE PO ONE (13:08)
[2019-11-14] MEDS ORDERED: PROCHLORPERAZINE 10 MG/2 ML VIAL IVP PRN (13:35)
[2019-11-14] MEDS ORDERED: MIN OIL/DIMETHICON/COCONUT OIL 92 GM TUBE TOP PRN (13:38)
--- NOTE | 2019-11-14 14:52 | XRAY Report ---
PROCEDURE: SBFT Challenge Panel INDICATIONS: SBO TECHNIQUE: Single AP radiograph of the abdomen was taken, followed by impaired tube administration of Gastrografin. Regress were taken 15 minutes and 4 hours after contrast administration. COMPARISON: None FINDINGS: Precontrast image demonstrates no abnormal bowel gas pattern. At 15 minutes, Gastrografin administered through the nasogastric tube is present within the stomach. On the 4 hour image, there has been complete progression of contrast through the entire small bowel a nd most of the colon. And entire colon including the sigmoid colon and portions of the rectum are opa cified with contrast. IMPRESSION: No findings of small bowel obstruction. Orally administered contrast progresses through the entire co jona and portions of the rectum within 4 hours of contrast administration. Reviewed by: Paolo Chapman MD on 11/14/2019 2:51 PM PDT Approved by: Paolo Chapman MD on 11/14/2019 2:51 PM PDT Station ID: [id number]
[2019-11-14] MEDS ORDERED: D5.45NS W/20 MEQ KCL 1,000 ML IV SCH (14:58)
--- NOTE | 2019-11-14 15:53 | PROVIDER PROGRESS NOTE ---
Subjective - General Admit Date: 11/13/19 - Review of Systems General: positive: No symptoms HEENT: positive: No symptoms Pulmonary: positive: No symptoms Cardiovascular: positive: No symptoms Gastrointestinal: negative: Nausea, Vomiting - Other Other Information/Narrative: No evidence of bowel obstruction Objective - Patient Data Vital Signs: Vital Signs x48h Temp Pulse Resp BP Pulse Ox 11/14/19 14:56 36.2 C L 62 18 120/57 L 94 11/14/19 08:00 37.0 C 63 20 137/61 H 95 Weight: Weight 11/12/19 11/13/19 11/14/19 23:59 23:59 23:59 Weight (kg) 115 kg Intake & Output: Intake and Output Totals x24h 11/12/19 11/13/19 11/14/19 23:59 23:59 23:59 Intake Total 2783 1703.334 Output Total 1250 1450 Balance 1533 253.334 - Lab Results Lab Results: 11/14/19 05:35 11/14/19 05:35 Other Lab Results: Lab Results x24hrs 11/14/19 11/14/19 11/13/19 Range/Units 05:35 05:35 23:53 WBC 5.9 (4.8-10.8) x10^3/uL RBC 3.49 L (4.20-5.40) 10^6/uL Hgb 8.4 L (12.0-16.0) g/dL Hct 28.6 L (37.0-47.0) % MCV 81.9 (81.0-99.0) fL MCH 24.1 L (27.0-31.0) pg MCHC 29.4 L (32.0-36.0) g/dL RDW 16.9 H (12.0-15.0) % Plt Count 223 (130-450) 10^3/uL MPV 10.9 H (7.9-10.8) fL Neut # (Auto) 3.8 (1.5-6.6) 10^3/uL Lymph # (Auto) 1.3 L (1.5-3.5) 10^3/uL [place] # (Auto) 0.5 (0.0-1.0) 10^3/uL Eos # (Auto) 0.2 (0.0-0.7) 10^3/uL Baso # (Auto) 0.0 (0.0-0.1) 10^3/uL Absolute Nucleated RBC 0.00 x10^3/uL Nucleated RBC % 0.0 /100WBC Sodium 138 (135-145) mmol/L Potassium 3.9 (3.5-5.0) mmol/L Chloride 107 (101-111) mmol/L Carbon Dioxide 26 (21-32) mmol/L Anion Gap 5.0 L (6-13) BUN 13 (6-20) mg/dL Creatinine 0.7 (0.4-1.0) mg/dL Estimated GFR (MDRD) 85 L (>89) Glucose 114 H (70-100) mg/dL POC Whole Bld Glucose 102 H (70 - 100) mg/dL Calcium 8.8 (8.5-10.3) mg/dL 11/13/19 Range/Units 18:34 WBC (4.8-10.8) x10^3/uL RBC (4.20-5.40) 10^6/uL Hgb (12.0-16.0) g/dL Hct (37.0-47.0) % MCV (81.0-99.0) fL MCH (27.0-31.0) pg MCHC (32.0-36.0) g/dL RDW (12.0-15.0) % Plt Count (130-450) 10^3/uL MPV (7.9-10.8) fL Neut # (Auto) (1.5-6.6) 10^3/uL Lymph # (Auto) (1.5-3.5) 10^3/uL [place] # (Auto) (0.0-1.0) 10^3/uL Eos # (Auto) (0.0-0.7) 10^3/uL Baso # (Auto) (0.0-0.1) 10^3/uL Absolute Nucleated RBC x10^3/uL Nucleated RBC % /100WBC Sodium (135-145) mmol/L Potassium (3.5-5.0) mmol/L Chloride (101-111) mmol/L Carbon Dioxide (21-32) mmol/L Anion Gap (6-13) BUN (6-20) mg/dL Creatinine (0.4-1.0) mg/dL Estimated GFR (MDRD) (>89) Glucose (70-100) mg/dL POC Whole Bld Glucose 101 H (70 - 100) mg/dL Calcium (8.5-10.3) mg/dL - Imaging Results Radiology Imaging: positive: Final report received Imaging Results Comments: No evidence of bowel obstruction - Current Medications Current Medications: Current Medications Generic Name Dose Route Start Last Admin Trade Name Freq PRN Reason Stop Dose Admin Acetaminophen 650 mg 11/13/19 13:19 11/14/19 08:35 Tylenol PO 650 mg Q4HR PRN Administration Pain or Fever > 38C (100.4F) Ferrous Sulfate 325 mg 11/13/19 17:00 11/14/19 08:35 Feosol PO 325 mg BIDWM ISSAC Administration Hydrocortisone 1 applic 11/13/19 15:47 11/14/19 08:51 Hydrocortisone TOP 1 applic DAILY PRN Administration ITCHING Hydroxyzine Pamoate 50 mg 11/13/19 15:46 11/13/19 21:03 Vistaril PO 50 mg QPM PRN Administration Insomnia Nystatin 1 applic 11/13/19 16:26 11/14/19 02:01 Nystop TOP 1 applic BID PRN Administration rash under breast folds Ondansetron HCl 4 mg 11/13/19 05:18 11/14/19 11:08 Zofran Inj IVP 4 mg Q4HR PRN Administration Nausea / Vomiting Pantoprazole Sodium 40 mg 11/13/19 07:00 11/14/19 06:22 Protonix IVP 40 mg QDAC ISSAC Administration Phenol/Menthol 2 sprays 11/13/19 06:11 11/14/19 11:11 Chloraseptic MM 2 sprays Q2HR PRN Administration Throat Pain Sertraline HCl 50 mg 11/13/19 15:46 11/14/19 08:35 Zoloft PO 50 mg DAILY ISSAC Administration Sodium Chloride 10 ml 11/13/19 05:18 11/14/19 11:08 Normal Saline Flush 0.9% IVP 10 ml PRN PRN Administration NEEDED PER PROVIDER ORDERS Sodium Chloride 10 ml 11/13/19 09:00 11/14/19 08:36 Normal Saline Flush 0.9% IVP 10 ml 0100,0900,1700 ISSAC Administration Throat Lozenges 1 lozenge 11/13/19 11:44 11/14/19 14:59 Cepacol MM 1 lozenge Q2HR PRN Administration Throat pain ABX Reporting Has patient been on IV antibiotics over the past 48 hours?: No Impression/Plan - Problem List Problem List: Agree with plans to advance diet. Please call if symptoms recur. .
--- NOTE | 2019-11-14 16:04 | PROVIDER PROGRESS NOTE ---
Assessment/Plan - Problem List (1) SBO (small bowel obstruction) Assessment/Plan: 11/13 Patient has bowel movements, X-ray of abdomen show no small bowel obstruction and is resolved.Patient continues complain nausea but no vomiting yet. Patient also feel hungry and request diet. We will remove NG tube, start with clear liquid diet, We will advance diet at tolerated, plan discharge patient on tomorrow Patient is n.p.o. IV hydration with normal saline at 125 mils per hour. Pain management with Dilaudid 1 mg every 2 hours as needed NG tube placed in the ED General surgery Dr. Tran Brian has been consulted. (2) Atrial fibrillation Patient is on sinus rhythm now (3) Anxiety Conclusion/Plan: On sertraline (4) Insomnia Conclusion/Plan: On zolpidem (5)anemia, iron deficiency Hemoglobin stable, today is 8.4. occult blood test is negative. Patient started with iron pill.Continue laboratory monitoring in the hospital. - Current Meds Current Meds: Current Medications Generic Name Dose Route Start Last Admin Trade Name Smoothq PRN Reason Stop Dose Admin Acetaminophen 650 mg 11/13/19 13:19 11/14/19 08:35 Tylenol PO 650 mg Q4HR PRN Administration Pain or Fever > 38C (100.4F) Ferrous Sulfate 325 mg 11/13/19 17:00 11/14/19 08:35 Feosol PO 325 mg BIDWM ISSAC Administration Hydrocortisone 1 applic 11/13/19 15:47 11/14/19 08:51 Hydrocortisone TOP 1 applic DAILY PRN Administration ITCHING Hydroxyzine Pamoate 50 mg 11/13/19 15:46 11/13/19 21:03 Vistaril PO 50 mg QPM PRN Administration Insomnia Nystatin 1 applic 11/13/19 16:26 11/14/19 02:01 Nystop TOP 1 applic BID PRN Administration rash under breast folds Ondansetron HCl 4 mg 11/13/19 05:18 11/14/19 11:08 Zofran Inj IVP 4 mg Q4HR PRN Administration Nausea / Vomiting Pantoprazole Sodium 40 mg 11/13/19 07:00 11/14/19 06:22 Protonix IVP 40 mg QDAC ISSAC Administration Phenol/Menthol 2 sprays 11/13/19 06:11 11/14/19 11:11 Chloraseptic MM 2 sprays Q2HR PRN Administration Throat Pain Sertraline HCl 50 mg 11/13/19 15:46 11/14/19 08:35 Zoloft PO 50 mg DAILY ISSAC Administration Sodium Chloride 10 ml 11/13/19 05:18 11/14/19 11:08 Normal Saline Flush 0.9% IVP 10 ml PRN PRN Administration NEEDED PER PROVIDER ORDERS Sodium Chloride 10 ml 11/13/19 09:00 11/14/19 08:36 Normal Saline Flush 0.9% IVP 10 ml 0100,0900,1700 ISSAC Administration Throat Lozenges 1 lozenge 11/13/19 11:44 11/14/19 14:59 Cepacol MM 1 lozenge Q2HR PRN Administration Throat pain - Lab Result Fish Bone Diagrams: 11/14/19 05:35 11/14/19 05:35 - Additional Planning My Orders: My Active Orders 11/13/19 15:46 Sertraline [Zoloft] 50 mg PO DAILY hydrOXYzine PAMOATE [VistariL] 50 mg PO QPM PRN 11/13/19 15:47 Hydrocortisone 1% Oint [Hydrocortisone] 1 applic TOP DAILY PRN 11/13/19 16:26 Nystatin [Nystop] 1 applic TOP BID PRN 11/13/19 17:00 Ferrous Sulfate [Feosol] 325 mg PO BIDWM 11/14/19 13:35 Prochlorperazine Inj [Compazine Inj] 10 mg IVP Q6HR PRN 11/14/19 14:08 Miscellaenous Nursing Order [RC] PRN 11/14/19 14:58 D5.45ns W/20 Meq KCl 1,000 ml IV 75 mls/hr 11/14/19 15:55 Nutrition Consult [CONS] Routine 11/14/19 Dinner Clear Liquid Diet [DIET] Subjective - Subjective Patient Reports: Feeling Better Objective Vital Signs: Vital Signs - 24 hr 11/13/19 11/14/19 11/14/19 20:15 00:00 05:14 Temperature 37.1 C 36.8 C 36.3 C L Heart Rate [ 58 L 68 56 L Brachial] Respiratory 16 18 Rate Blood Pressure 131/56 H 131/49 H 126/51 L [Right Brachial artery] O2 Saturation 95 93 93 11/14/19 11/14/19 08:00 14:56 Temperature 37.0 C 36.2 C L Heart Rate [ 63 62 Brachial] Respiratory 20 18 Rate Blood Pressure 137/61 H 120/57 L [Right Brachial artery] O2 Saturation 95 94 Oxygen O2 Source Room air I&O (Last 24 Hrs): Intake and Output Totals x24h 11/12/19 11/13/19 11/14/19 23:59 23:59 23:59 Intake Total 2783 1703.334 Output Total 1250 1450 Balance 1533 253.334 General: Alert, Oriented x3, No acute distress HEENT: Atraumatic Neck: Supple Lymphatic: no adenopathy Neuro: Alert, Non Focal, Oriented Times 3 Cardiovascular: Regular rate, Normal S1, Normal S2 Respiratory: Chest non-tender, No respiratory distress, Breath sounds nml Abdomen: Normal bowel sounds, Soft Extremities: Normal pulses - Results Results: Laboratory Results WBC 5.9 x10^3/uL (4.8-10.8) 11/14/19 05:35 RBC 3.49 10^6/uL (4.20-5.40) L 11/14/19 05:35 Hgb 8.4 g/dL (12.0-16.0) L 11/14/19 05:35 Hct 28.6 % (37.0-47.0) L 11/14/19 05:35 MCV 81.9 fL (81.0-99.0) 11/14/19 05:35 MCH 24.1 pg (27.0-31.0) L 11/14/19 05:35 MCHC 29.4 g/dL (32.0-36.0) L 11/14/19 05:35 RDW 16.9 % (12.0-15.0) H 11/14/19 05:35 Plt Count 223 10^3/uL (130-450) 11/14/19 05:35 MPV 10.9 fL (7.9-10.8) H 11/14/19 05:35 Reticulocyte % (Auto) 1.96 % (0.5-2.3) 11/13/19 02:10 Neut # (Auto) 3.8 10^3/uL (1.5-6.6) 11/14/19 05:35 Lymph # (Auto) 1.3 10^3/uL (1.5-3.5) L 11/14/19 05:35 [place] # (Auto) 0.5 10^3/uL (0.0-1.0) 11/14/19 05:35 Eos # (Auto) 0.2 10^3/uL (0.0-0.7) 11/14/19 05:35 Baso # (Auto) 0.0 10^3/uL (0.0-0.1) 11/14/19 05:35 Absolute Nucleated RBC 0.00 x10^3/uL 11/14/19 05:35 Nucleated RBC % 0.0 /100WBC 11/14/19 05:35 Absolute Retic 0.068 10^6/uL (0.020-0.110) 11/13/19 02:10 PT 11.3 secs (9.9-12.6) 11/13/19 02:10 INR 1.0 (0.8-1.2) 11/13/19 02:10 APTT 28.4 secs (24.9-33.3) 11/13/19 02:10 Sodium 138 mmol/L (135-145) 11/14/19 05:35 Potassium 3.9 mmol/L (3.5-5.0) 11/14/19 05:35 Chloride 107 mmol/L (101-111) 11/14/19 05:35 Carbon Dioxide 26 mmol/L (21-32) 11/14/19 05:35 Anion Gap 5.0 (6-13) L 11/14/19 05:35 BUN 13 mg/dL (6-20) 11/14/19 05:35 Creatinine 0.7 mg/dL (0.4-1.0) 11/14/19 05:35 Estimated GFR (MDRD) 85 (>89) L 11/14/19 05:35 Glucose 114 mg/dL (70-100) H 11/14/19 05:35 POC Whole Bld Glucose 102 mg/dL (70 - 100) H 11/13/19 23:53 Lactic Acid 1.1 mmol/L (0.5-2.2) 11/13/19 02:10 Calcium 8.8 mg/dL (8.5-10.3) 11/14/19 05:35 Iron 13 ug/dL (28-170) L 11/13/19 02:10 TIBC 505 ug/dL (250-450) H 11/13/19 02:10 % Saturation 3 % (20-50) L 11/13/19 02:10 Transferrin 361 mg/dL (192-382) 11/13/19 02:10 Ferritin 6.7 ng/mL (11.0-306.8) L 11/13/19 02:10 Total Bilirubin 0.5 mg/dL (0.2-1.0) 11/13/19 02:10 AST 26 IU/L (10-42) 11/13/19 02:10 ALT 39 IU/L (10-60) 11/13/19 02:10 Alkaline Phosphatase 69 IU/L (42-121) 11/13/19 02:10 Lactate Dehydrogenase 171 IU/L (91-225) 11/13/19 02:10 Total Creatine Kinase 139 IU/L (22-269) 11/13/19 02:10 Troponin I High Sens 4.6 ng/L (2.3-14.8) 11/13/19 02:10 Total Protein 6.4 g/dL (6.7-8.2) L 11/13/19 02:10 Albumin 3.8 g/dL (3.2-5.5) 11/13/19 02:10 Globulin 2.6 g/dL (2.1-4.2) 11/13/19 02:10 Albumin/Globulin Ratio 1.5 (1.0-2.2) 11/13/19 02:10 Lipase 32 U/L (22-51) 11/13/19 02:10 Vitamin B12 1731 pg/mL (180-914) H 11/13/19 02:10 Urine Color YELLOW 11/13/19 03:30 Urine Clarity CLEAR (CLEAR) 11/13/19 03:30 Urine pH 6.0 PH (5.0-7.5) 11/13/19 03:30 Ur Specific Mik[place] 1.015 (1.002-1.030) 11/13/19 03:30 Urine Protein NEGATIVE mg/dL (NEGATIVE) 11/13/19 03:30 Urine Glucose (UA) NEGATIVE mg/dL (NEGATIVE) 11/13/19 03:30 Urine Ketones NEGATIVE mg/dL (NEGATIVE) 11/13/19 03:30 Urine Occult Blood NEGATIVE (NEGATIVE) 11/13/19 03:30 Urine Nitrite NEGATIVE (NEGATIVE) 11/13/19 03:30 Urine Bilirubin NEGATIVE (NEGATIVE) 11/13/19 03:30 Urine Urobilinogen 0.2 (NORMAL) E.U./dL (NORMAL) 11/13/19 03:30 Ur Leukocyte Esterase TRACE (NEGATIVE) H 11/13/19 03:30 Urine RBC 0-5 /HPF (0-5) 11/13/19 03:30 Urine WBC 0-3 /HPF (0-5) 11/13/19 03:30 Ur Squamous Epith Cells FEW Squamous (<= Few) 11/13/19 03:30 Urine Bacteria Rare /HPF (None Seen) 11/13/19 03:30 Ur Microscopic Review INDICATED 11/13/19 03:30 Urine Culture Comments INDICATED 11/13/19 03:30 Urine HCG, Qual NEGATIVE 11/13/19 03:30 ABX Reporting Has patient been on IV antibiotics over the past 48 hours?: No Current Medications - Current Medications Current Medications: Active Medications Acetaminophen (Tylenol) 650 mg PO Q4HR PRN PRN Reason: Pain or Fever > 38C (100.4F) Last Admin: 11/14/19 08:35 Dose: 650 mg Documented by: Ferrous Sulfate (Feosol) 325 mg PO BIDWM ISSAC Last Admin: 11/14/19 08:35 Dose: 325 mg Documented by: Hydrocortisone (Hydrocortisone) 1 applic TOP DAILY PRN PRN Reason: ITCHING Last Admin: 11/14/19 08:51 Dose: 1 applic Documented by: Hydromorphone HCl (Dilaudid Inj Syringe) 0.5 mg IVP Q4HR PRN PRN Reason: PAIN Hydroxyzine Pamoate (Vistaril) 50 mg PO QPM PRN PRN Reason: Insomnia Last Admin: 11/13/19 21:03 Dose: 50 mg Documented by: Potassium Chloride/Dextrose/Sod Cl (D5.45ns W/20 Meq Kcl) 1,000 mls @ 75 mls/hr IV .[id number] ISSAC Mineral Oil (Cavilon) 1 applic TOP PRN PRN PRN Reason: Skin Care Nystatin (Nystop) 1 applic TOP BID PRN PRN Reason: rash under breast folds Last Admin: 11/14/19 02:01 Dose: 1 applic Documented by: Ondansetron HCl (Zofran Inj) 4 mg IVP Q4HR PRN PRN Reason: Nausea / Vomiting Last Admin: 11/14/19 11:08 Dose: 4 mg Documented by: Pantoprazole Sodium (Protonix) 40 mg IVP QDAC [facility] Last Admin: 11/14/19 06:22 Dose: 40 mg Documented by: Phenol/Menthol (Chloraseptic) 2 sprays MM Q2HR PRN PRN Reason: Throat Pain Last Admin: 11/14/19 11:11 Dose: 2 sprays Documented by: Prochlorperazine Edisylate (Compazine Inj) 10 mg IVP Q6HR PRN PRN Reason: Nausea / Vomiting Sertraline HCl (Zoloft) 50 mg PO DAILY [facility] Last Admin: 11/14/19 08:35 Dose: 50 mg Documented by: Sodium Chloride (Normal Saline Flush 0.9%) 10 ml IVP PRN PRN PRN Reason: NEEDED PER PROVIDER ORDERS Last Admin: 11/14/19 11:08 Dose: 10 ml Documented by: Sodium Chloride (Normal Saline Flush 0.9%) 10 ml IVP 0100,0900,1700 [facility] Last Admin: 11/14/19 08:36 Dose: 10 ml Documented by: Throat Lozenges (Cepacol) 1 lozenge MM Q2HR PRN PRN Reason: Throat pain Last Admin: 11/14/19 14:59 Dose: 1 lozenge Documented by: Sertraline [Zoloft] 50 mg PO DAILY 05/02/15 Ascorbic Acid [Vitamin C with Yani Hips] 500 mg PO DAILY 11/13/19 Fluticasone [Flonase] 2 spr NICOLE DAILY 11/13/19 Hydrocortisone 1% Oint [Hydrocortisone] 1 applic PRN PRN 11/13/19 Magnesium Oxide [Magnesium] 200 mg PO DAILY 11/13/19 Multivitamin [Daily Multiple Vitamin] 1 tab PO DAILY 11/13/19 Pantoprazole Sodium [Protonix] 20 mg PO DAILY 11/13/19 hydrOXYzine HCL [Hydroxyzine HCl] 25 - 50 mg PO QPM PRN 11/13/19 hydrOXYzine HCL [Hydroxyzine HCl] 50 mg PO QPM 11/13/19
--- NOTE | 2019-11-14 16:50 | Discharge Plan ---
Discharge Plan Problem Reviewed?: Yes Disposition: Home, Self Care Condition: Stable Prescriptions: Ferrous Sulfate [Feosol] 325 mg PO DAILY #30 tablet Diet: Soft Activity Restrictions: Activity as Tolerated Shower Restrictions: No (fall precaution) Instruction Topics: Obstruction Sm Bowel, Anemia Iron Deficiency Ch Health Concerns: Small bowel obstruction Plan of Treatment: your small bowel obstruction is resolved now. advise you followup with surgeon Dr. Brian in 2-3 weeks, advise you cut foods into small pieces, chew food wells, eat slowly, follow with a low fibre diet, avoid food which is tough or stringy, well-cooked vegetables, use moist cooking methods, try safely to take walk every day as you tolerate. you are found to have iron deficiency anemia, you are prescribed iron pill as well. Care Goals: stabilization and improvement of your medical conditions Assessment: discussed the care plan with you and your , you understood. Additional Instructions or Follow Up instructions: You may followup with your PCP in one to two weeks, followup with Dr. Brian in 2- 3 weeks. Should your symptoms return or worsen, you may present ER or call 911 for help. Follow-Up Care: Dietitian No Smoking: If you smoke, Please STOP! Call for help. Follow-up with: Humberto Mays MD [Primary Care Provider] -
--- NOTE | 2019-11-14 17:01 | DISCHARGE SUMMARY ---
"Discharge Summary Admit Date: 11/13/19 Discharge Date: 11/14/19 Discharging Provider: Benjy Boswell Primary Care Provider: Manny Guevara Condition at Discharge: Stable Discharge Disposition: 01 Home, Self Care Discharge Facility Name: home - DIAGNOSES Discharge Diagnoses with Status of Each Condition: (1) SBO (small bowel obstruction) resolved. Patient has bowel movements, X-ray of abdomen show no small bowel obstruction. General surgery Dr. Tran Brian released pt for discharge. pt really want to go home today. pt was instructions for diet to prevention of small bowel obstruction. Dr. Huff stated she will search patient medical records from [place] and stated let the patient follow-up with her after discharge. (2) Atrial fibrillation resolved. Patient is on sinus rhythm now (3) Anxiety stable (4) Insomnia stable (5)anemia, iron deficiency Hemoglobin stable, pt is prescribed with iron pill. - HPI History of Present Illness: refer from 's HPI on 11/13/2019 Patient is a 59-year-old female with history of multiple abdominal surgeries and subsequently history of multiple small bowel obstructions who presented to the ED with complaint of abdominal pain. This started around 5 PM today. She describes it like a ball of bad sharp pain in her upper abdomen. She e xperienced similar episodes in November 2018, January 2019, May 2019 and August 2019. During her last episode she was taken to [facility].She had some homemade pizza before her pain intensified today. She has vomited approximately 6 times. She Denies chest pain, dyspnea, fever or chills. Work- up in the ED included a CT of the abdomen pelvis which showed early small bowel obstruction. She also had a white blood cell count of 12. Dr. Tran Brian with general surgery was contacted by the ED and is agreeable to see the patient in consult later in the day. - CONSULTS | PROCEDURES Consultations: Dr. Brian Procedures: no procedure - HOSPITAL COURSE Hospital Course: Patient was admitted for abdominal pain, nausea and vomiting. CAT scan of abdomen show patient had ileus or partial small bowel obstruction.GI surgeon Dr. Brian was consulted. Patient had bowel rest and intravenous IV fluids, pain control, patient was encouraged to ambulate, gastric challenge test and image study. After treatment, Patient had bowel movements. X-ray of abdomen show no small bowel obstruction. Surgeon Dr. Brian discharge patient. Patient was found to have iron deficiency anemia, hemoglobin stable, occult blood test is negative. Patient really want to go home today. Patient was given dietary in struction for prevention of small bowel obstruction. - ALLERGIES Allergies/Adverse Reactions: Allergies Allergy/AdvReac Type Severity Reaction Status Date / Time peanut Allergy Severe Anaphylaxis Verified 11/13/19 08:35 hydrocodone bitartrate * Allergy Unknown Verified 11/13/19 00:35 [From Vicodin] Penicillins Allergy Unknown Verified 11/13/19 00:35 Sulfa (Sulfonamide Allergy Unknown Verified 11/13/19 00:35 Antibiotics) - MEDICATIONS Home Medications: Ambulatory Orders Medication Instructions Recorded Confirmed EPINEPHrine [Epipen 2-Laz] 0.3 mg IJ ONCE PRN #1 unit 05/02/15 11/13/19 Sertraline [Zoloft] 50 mg PO DAILY 05/02/15 11/13/19 Ascorbic Acid [Vitamin C with Yani 500 mg PO DAILY 11/13/19 11/13/19 Hips] Fluticasone [Flonase] 2 spr NICOLE DAILY 11/13/19 11/13/19 Hydrocortisone 1% Oint 1 applic PRN PRN 11/13/19 11/13/19 [Hydrocortisone] Magnesium Oxide [Magnesium] 200 mg PO DAILY 11/13/19 11/13/19 Multivitamin [Daily Multiple 1 tab PO DAILY 11/13/19 11/13/19 Vitamin] Pantoprazole Sodium [Protonix] 20 mg PO DAILY 11/13/19 11/13/19 hydrOXYzine HCL [Hydroxyzine HCl] 25 - 50 mg PO QPM PRN 11/13/19 11/13/19 hydrOXYzine HCL [Hydroxyzine HCl] 50 mg PO QPM 11/13/19 11/13/19 Ferrous Sulfate [Feosol] 325 mg PO DAILY #30 tablet 11/14/19 - PHYSICAL EXAM AT DISCHARGE General Appearance: positive: No acute distress, Alert. negative: Lethargic Eyes Bilateral: positive: Normal inspection, PERRL, No lid inflammation ENT: positive: ENT inspection nml, No signs of dehydration. negative: Purulent nasal drainage, Dry mucous membranes Neck: positive: Nml inspection, Thyroid nml, Trachea midline. negative: Thyromegaly, Stiff neck, Tracheal deviation Respiratory: positive: Chest non-tender, No respiratory distress, Breath sounds nml. negative: Wheezes, Rales, Rhonchi Cardiovascular: positive: Regular rate & rhythm, No murmur. negative: Irregularly irregular, Tachycardia, Bradycardia, Systolic murmur, Diastolic murmur Peripheral Pulses: positive: 2+ Abdomen: positive: Non-tender, No organomegaly, Nml bowel sounds, No distention. negative: Tenderness, Guarding, Rebound Back: positive: Nml inspection. negative: CVA tenderness (R), CVA tenderness (L) Skin: positive: Color nml, No rash, Warm, Dry. negative: Cyanosis, Diaphoresis, Pallor Extremities: positive: Non-tender, Full ROM, Nml appearance. negative: Calf tenderness, Elizabeth's sign/cords Neurologic/Psychiatric: positive: Oriented x3, Motor nml, Sensation nml, Mood/affect nml. negative: Weakness, Sensory loss, Facial droop, Slurred/abnml speech, Depressed mood/affect - LABS Result Diagrams: 11/14/19 05:35 11/14/19 05:35 - FOLLOW UP Follow Up: your small bowel obstruction is resolved now. advise you followup with surgeon Dr. Brian in 2-3 weeks, advise you cut foods into small pieces, chew food wells, eat slowly, follow with a low fibre diet, avoid food which is tough or stringy, well-cooked vegetables, use moist cooking methods, try safely to take walk every day as you tolerate. you are found to have iron deficiency anemia, you are prescribed iron pill as well. You may followup with your PCP in one to two weeks, followup with Dr. Brian in 2- 3 weeks. Should your symptoms return or worsen, you may present ER or call 911 for help. - TIME SPENT Time Spent in Discharge (Minutes): 30"
[2019-11-14 17:36] VITALS: BP 133/59
== END 2019-11-14 18:10 | disposition home or self-care (01) | DRG 390 ==
LOC: ED 00:25 → MS3 05:18
PROVIDERS: ADMIT Internal Medicine; ATTEND Nurse Practitioner Gerontology
DX: K56.600 Partial intestinal obstruction, unspecified as to cause (principal); I48.0 Paroxysmal atrial fibrillation; F41.9 Anxiety disorder, unspecified; D50.9 Iron deficiency anemia, unspecified; G47.00 Insomnia, unspecified
CPT/HCPCS: 36415; 71045; 74018; 74177; 74250; 80048; 80053; 81001; 81025; 82272; 82550; 82607; 82728; 83540; 83605; 83615; 83690; 84466; 84484; 85025; 85045; 85610; 85730; 87086; 93005; 96361; 96374; 96375; 96376; 99283; 99285; A6250; A9270; J1170; J2060; Q9963; Q9967; 81003

== ENCOUNTER 2020-10-16 10:02 | Outpatient (CLI) | payer OTHER | END 2020-10-16 10:03 | disposition critical access hospital (66) | LOC: EMS 10:02 | DX: R00.2 Palpitations (principal); R42 Dizziness and giddiness | CPT/HCPCS: A0425; A0427 ==

== ENCOUNTER 2020-10-16 10:28 | Emergency (ER) | payer OTHER ==
--- NOTE | 2020-10-16 11:29 | XRAY Report ---
PROCEDURE: Chest 1 View X-Ray INDICATIONS: chest pain TECHNIQUE: One view of the chest was acquired. COMPARISON: 11/13/2019 and 08/25/2015 FINDINGS: Surgical changes and devices: None. Lungs and pleura: No pleural effusions or pneumothorax. Lungs are clear. Mediastinum: Mediastinal contours appear normal. Heart size is normal. Bones and chest wall: No suspicious bony lesions. Overlying soft tissues appear unremarkable. IMPRESSION: No acute cardiopulmonary disease process. Reviewed by: Cata Berumen MD, PhD on 10/16/2020 11:28 AM PDT Approved by: Cata Berumen MD, PhD on 10/16/2020 11:28 AM PDT Station ID: [id number]
[2020-10-16 11:31] LABS: BILIRUBIN,URINE NEGATIVE (NEGATIVE); GLUCOSE, URINE (UA) NEGATIVE (NEGATIVE); KETONES,URINE (UA) NEGATIVE (NEGATIVE); LEUKOCYTE ESTERASE, URINE NEGATIVE (NEGATIVE); NITRITE,URINE NEGATIVE (NEGATIVE); OCCULT BLOOD,URINE NEGATIVE (NEGATIVE); PROTEIN,URINE NEGATIVE (NEGATIVE); UROBILINOGEN,URINE 0.2 (NORMAL) E.U./dL (NORMAL)
[2020-10-16 11:32] LABS: CLARITY,URINE CLEAR (CLEAR)
--- NOTE | 2020-10-16 12:10 | ED Physician Documentation ---
History of Present Illness - Stated complaint Stated Complaint: CP - Chief complaint Chief Complaint: Cardiac - History obtained from History obtained from: Patient - History of Present Illness Timing: Enter time (299), Today - Additonal information Additional information: 60-year-old female with history of intermittent atrial fibrillation developed a cute palpitations last night that awoke her from sleep. She states that she could feel her heart racing at the time and this did not last. She felt lightheaded and dizzy when this was occurring and this morning she has come in for evaluation. She states that she does still feel somewhat dizzy but she is denies any chest pain or shortness of breath. She has had a prior history of atrial fibrillation with a rapid rate which is captured at the headquarters of the ambulance. She had conversion in route on that visit. She is not on a blood thinner. Review of Systems Constitutional: denies: Fever Ears: denies: Ear pain Nose: denies: Congestion Throat: denies: Sore throat Cardiac: reports: Palpitations. 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 : None HEENT: None Psych: None Musculoskeletal: None Derm: None - Past Surgical History Past Surgical History: Yes General: Cholecystectomy Ortho: Other /WOODWORKING CRAFTSMAN: section, Dilation and currettage, Oophrectomy HEENT: Tonsil/Adenoidectomy - Present Medications Home Medications: Ambulatory Orders Medication Instructions Recorded Confirmed EPINEPHrine [Epipen 2-Laz] 0.3 mg IJ ONCE PRN #1 unit 05/02/15 11/13/19 Sertraline [Zoloft] 50 mg PO DAILY 05/02/15 11/13/19 Ascorbic Acid [Vitamin C with Yani 500 mg PO DAILY 11/13/19 11/13/19 Hips] Fluticasone [Flonase] 2 spr NICOLE DAILY 11/13/19 11/13/19 Hydrocortisone 1% Oint 1 applic PRN PRN 11/13/19 11/13/19 [Hydrocortisone] Ferrous Sulfate [Feosol] 325 mg PO DAILY #30 tablet 11/14/19 Apixaban [Eliquis] 2.5 mg PO BID #42 tablet 10/16/20 - Allergies Allergies/Adverse Reactions: Allergies Allergy/AdvReac Type Severity Reaction Status Date / Time peanut Allergy Severe Anaphylaxis Verified 10/16/20 10:36 hydrocodone bitartrate * Allergy Unknown Verified 10/16/20 10:36 [From Vicodin] Penicillins Allergy Unknown Verified 10/16/20 10:36 Sulfa (Sulfonamide Allergy Unknown Verified 10/16/20 10:36 Antibiotics) - Social History Does the pt smoke?: No Smoking Status: Never smoker Does the pt drink ETOH?: Yes Does the pt have substance abuse?: No - Immunizations Immunizations are current?: Yes - POLST Patient has POLST: No POLST Status: Full Code PD ED PE NORMAL - Vitals Vital signs reviewed: Yes (hypertensive ) - General General: Alert and oriented X 3, No acute distress, Well developed/nourished - HEENT HEENT: Atraumatic, PERRL, EOMI - Neck Neck: Supple, no meningeal sign, No bony TTP - Cardiac Cardiac: No murmur, Other (irregularly irregular) - Respiratory Respiratory: No respiratory distress, Clear bilaterally - Abdomen Abdomen: Normal bowel sounds, Soft, Non tender, Non distended, No organomegaly - Back Back: No CVA TTP, No spinal TTP - Derm Derm: Normal color, Warm and dry, No rash - Extremities Extremities: No deformity, Other (trace edema bilat) - Neuro Neuro: Alert and oriented X 3, beverage host 2-12 intact, No motor deficit, No sensory deficit, Normal speech Eye Opening: Spontaneous Motor: Obeys Commands Verbal: Oriented GCS Score: 15 - Psych Psych: Normal mood, Normal affect Results - Vitals Vitals: Vital Signs - 24 hr 10/16/20 10/16/20 10/16/20 10:31 12:16 14:00 Temperature 36.8 C 36.8 C Heart Rate 66 68 75 Respiratory 18 15 18 Rate Blood Pressure 117/101 H 140/71 H 135/63 H O2 Saturation 99 96 95 10/16/20 14:46 Temperature 36.7 C Heart Rate 79 Respiratory 19 Rate Blood Pressure 140/71 H O2 Saturation 96 Oxygen O2 Source Room air - EKG (time done) 1034 Rate: Rate (enter#) (68) Rhythm: Atrial fibrillation QRS: LVH (by voltage limb leads), Low voltage (precordial) Ischemia: Normal ST segments Compare to prior EKG: Changed from prior EKG ([facility] 11-13-2019 rhythm has changed to afib) Computer interpretation: Agree with computer 1350 Rate: Rate (enter#) (74) Rhythm: Atrial fibrillation QRS: LVH Compare to prior EKG: Unchanged from prior EKG Computer interpretation: Agree with computer - Labs Labs: Laboratory Tests 10/16/20 10/16/20 10/16/20 11:20 12:06 12:06 WBC 5.0 RBC 4.33 Hgb 13.2 Hct 40.1 MCV 92.6 MCH 30.5 MCHC 32.9 RDW 15.6 H Plt Count 190 MPV 10.7 Neut # (Auto) 3.0 Lymph # (Auto) 1.2 L Fisher # (Auto) 0.5 Eos # (Auto) 0.3 Baso # (Auto) 0.1 Absolute Nucleated RBC 0.00 Nucleated RBC % 0.0 Sodium 144 Potassium 3.9 Chloride 110 Carbon Dioxide 24 Anion Gap 10.0 BUN 18 Creatinine 0.6 Estimated GFR (MDRD) 102 Glucose 101 H Calcium 9.2 Total Bilirubin 0.8 AST 28 ALT 38 Alkaline Phosphatase 64 Troponin I High Sens B-Natriuretic Peptide Total Protein 6.6 L Albumin 3.9 Globulin 2.7 Albumin/Globulin Ratio 1.4 Lipase 30 Urine Color LIGHT YELLOW Urine Clarity CLEAR Urine pH 7.0 Ur Specific [place] <=1.005 Urine Protein NEGATIVE Urine Glucose (UA) NEGATIVE Urine Ketones NEGATIVE Urine Occult Blood NEGATIVE Urine Nitrite NEGATIVE Urine Bilirubin NEGATIVE Urine Urobilinogen 0.2 (NORMAL) Ur Leukocyte Esterase NEGATIVE Ur Microscopic Review NOT INDICATED Urine Culture Comments NOT INDICATED 10/16/20 10/16/20 12:06 12:06 WBC RBC Hgb Hct MCV MCH MCHC RDW Plt Count MPV Neut # (Auto) Lymph # (Auto) Fisher # (Auto) Eos # (Auto) Baso # (Auto) Absolute Nucleated RBC Nucleated RBC % Sodium Potassium Chloride Carbon Dioxide Anion Gap BUN Creatinine Estimated GFR (MDRD) Glucose Calcium Total Bilirubin AST ALT Alkaline Phosphatase Troponin I High Sens 6.1 B-Natriuretic Peptide 178 H Total Protein Albumin Globulin Albumin/Globulin Ratio Lipase Urine Color Urine Clarity Urine pH Ur Specific [place] Urine Protein Urine Glucose (UA) Urine Ketones Urine Occult Blood Urine Nitrite Urine Bilirubin Urine Urobilinogen Ur Leukocyte Esterase Ur Microscopic Review Urine Culture Comments - Rads (name of study) chest Radiology: Prelim report reviewed (Impression: No acute cardiopulmonary disease process.) Procedures - IVC sono (time) 1100 Bedside IVC sono: IVC measures (cm) (1.92), Euvolemia PD MEDICAL DECISION MAKING - ED course Complexity details: reviewed results, re-evaluated patient, considered differential, d/w patient ED course: 60-year-old female with what appears to be an episode of atrial fibrillation with rapid ventricular response last night now has rate control and she is feeling relatively normal. She does feel that she has irregular heart rate. She has had prior visit to the user acceptance tester including an attempt at ablation. She is not anticoagulated and is not a candidate for cardioversion today. I discussed with the patient placing her on a blood thinner and follow-up with her user acceptance tester and she feels comfortable with this. I have encouraged the patient to return to the emergency department should she have issues with rapid ventricular response. Departure - Departure Disposition: 01 Home, Self Care Clinical Impression: Atrial fibrillation Qualifiers: Atrial fibrillation type: persistent (not longstanding) Qualified Code(s): I48.19 - Other persistent atrial fibrillation Condition: Stable Instructions: ED Afib Follow-Up: ANTONIETA ESPINOSA DO [Primary Care Provider] - Prescriptions: Apixaban [Eliquis] 2.5 mg PO BID #42 tablet Comments: Today we have found you are in afib with a controlled rate. We are putting you on a blood thinner and you will need to follow up with your user acceptance tester in the next 1-2 weeks. If you are unable to tolerate being in afib return here or follow up with your user acceptance tester. Discharge Date/Time: 10/16/20 15:05
[2020-10-16 12:15] LABS: BASOPHILS # (AUTO) 0.1 10^3/uL (0.0-0.1); EOSINOPHILS # (AUTO) 0.3 10^3/uL (0.0-0.7); EOSINOPHILS % (AUTO) 5.2 %; HCT - HEMATOCRIT 40.1 % (37.0-47.0); HGB - HEMOGLOBIN 13.2 g/dL (12.0-16.0); LYMPHOCYTES # (AUTO) 1.2 10^3/uL (1.5-3.5); LYMPHOCYTES % (AUTO) 24.1 %; MEAN CORPUSCULAR HEMOGLOBIN 30.5 pg (27.0-31.0); MEAN CORPUSCULAR HGB CONC 32.9 g/dL (32.0-36.0); MEAN CORPUSCULAR VOLUME 92.6 fL (81.0-99.0); MEAN PLATELET VOLUME 10.7 fL (7.9-10.8); MONOCYTES # (AUTO) 0.5 10^3/uL (0.0-1.0); MONOCYTES % (AUTO) 9.1 %; NEUTROPHILS % (AUTO) 60.4 %; PLT - PLATELET COUNT 190 10^3/uL (130-450); RED BLOOD COUNT 4.33 10^6/uL (4.20-5.40); RED CELL DISTRIBUTION WIDTH 15.6 % (12.0-15.0)
[2020-10-16 12:51] LABS: ALBUMIN 3.9 g/dL (3.2-5.5); ALBUMIN/GLOBULIN RATIO 1.4 (1.0-2.2); BILIRUBIN,TOTAL 0.8 mg/dL (0.2-1.0); CALCIUM 9.2 mg/dL (8.5-10.3); CREATININE 0.6 mg/dL (0.4-1.0); POTASSIUM 3.9 mmol/L (3.5-5.0); TOTAL PROTEIN 6.6 g/dL (6.7-8.2)
[2020-10-16 14:46] VITALS: BP 140/71
--- NOTE | 2020-10-16 19:13 | ED Physician Documentation ---
ED Addendum - Addendum Addendum: 10/16/20 19:13 Took call from pharmacy, Peter not covered. Pradaxa is. Offered to authorize change to Pradaxa 150 mg p.o. twice daily #60.
== END 2020-10-16 15:05 | disposition home or self-care (01) ==
LOC: EDUNIT# → ED 10:28
DX: I48.19 Other persistent atrial fibrillation (principal); Z79.01 Long term (current) use of anticoagulants
CPT/HCPCS: 36415; 80053; 81001; 81003; 83690; 83880; 84484; 85025; 87086; 93005; 99284

== ENCOUNTER 2021-08-31 20:01 | Emergency (ER) | payer OTHER ==
[2021-08-31 20:37] VITALS: BP 186/61
[2021-08-31] MEDS ORDERED: oxyCODONE 5 MG TABLET PO STA (21:13)
--- NOTE | 2021-08-31 21:18 | ED Physician Documentation ---
PD HPI LOWER EXT INJURY - Stated complaint Stated Complaint: RT NGUYỄN PX - Chief complaint Chief Complaint: Ext Problem - History obtained from History obtained from: Patient - Additional information Additional information: 61-year-old woman on Pradaxa for A. fib with recent apparently successful ablation was sitting on her patio about 5 nights ago and her dog got spooked and wrapped the leash around a large candle stick which subsequently fell and hit her on the anterior right lower leg with persistent severe pain and swelling. 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 : None HEENT: None Psych: None Musculoskeletal: None Derm: None - Past Surgical History Past Surgical History: Yes General: Cholecystectomy Ortho: Other /GRAY MIXING OPERATOR: section, Dilation and currettage, Oophrectomy HEENT: Tonsil/Adenoidectomy - Present Medications Home Medications: Ambulatory Orders Medication Instructions Recorded Confirmed EPINEPHrine [Epipen 2-Laz] 0.3 mg IJ ONCE PRN #1 unit 05/02/15 11/13/19 Sertraline [Zoloft] 50 mg PO DAILY 05/02/15 11/13/19 Ascorbic Acid [Vitamin C with Yani 500 mg PO DAILY 11/13/19 11/13/19 Hips] Fluticasone [Flonase] 2 spr NICOLE DAILY 11/13/19 11/13/19 Hydrocortisone 1% Oint 1 applic PRN PRN 11/13/19 11/13/19 [Hydrocortisone] Ferrous Sulfate [Feosol] 325 mg PO DAILY #30 tablet 11/14/19 Apixaban [Eliquis] 2.5 mg PO BID #42 tablet 10/16/20 Ondansetron Odt [Zofran] 4 mg TL Q6H PRN #10 tablet 08/31/21 Oxycodone HCl/Acetaminophen 1 - 2 each PO Q6H PRN #14 tablet 08/31/21 [Percocet 5-325 mg Tablet] - Allergies Allergies/Adverse Reactions: Allergies Allergy/AdvReac Type Severity Reaction Status Date / Time peanut Allergy Severe Anaphylaxis Verified 08/31/21 20:37 hydrocodone bitartrate * Allergy Unknown Verified 08/31/21 20:37 [From Vicodin] Penicillins Allergy Unknown Verified 08/31/21 20:37 Sulfa (Sulfonamide Allergy Unknown Verified 08/31/21 20:37 Antibiotics) - Social History Does the pt smoke?: No Smoking Status: Never smoker Does the pt drink ETOH?: Yes Does the pt have substance abuse?: No - Immunizations Immunizations are current?: Yes - POLST Patient has POLST: No POLST Status: Full Code PD ED PE NORMAL - Vitals Vital signs reviewed: Yes - General General: Alert and oriented X 3, No acute distress - HEENT HEENT: PERRL, EOMI - Neck Neck: Supple, no meningeal sign, No bony TTP - Extremities Extremities: Other (Good pedal pulses and sensation, no pain with passive flexion or extension of the ankle, she is bruised and tender over the anterior nguyễn. Compartments are soft.) - Neuro Neuro: Alert and oriented X 3, Normal speech Results - Vitals Vitals: Vital Signs - 24 hr 08/31/21 08/31/21 20:29 22:13 Temperature 37.2 C Heart Rate 69 Respiratory 17 17 Rate Blood Pressure 186/61 H O2 Saturation 99 Oxygen O2 Source Room air - Rads (name of study) R tib fib xr Radiology: EMP read contemporaneously (neg) PD MEDICAL DECISION MAKING - ED course ED course: 61-year-old woman on Pradaxa presents with a right nguyễn injury. She does have significant pain so consideration was given to compartment syndrome, that said her compartments are soft, no pain with/passive flexion or extension at the ankle, and no neurovascular compromise in the foot. X-ray was negative. Departure - Departure Disposition: 01 Home, Self Care Clinical Impression: Contusion of right leg Qualifiers: Encounter type: initial encounter Qualified Code(s): S80.11XA - Contusion of right lower leg, initial encounter Condition: Good Record reviewed to determine appropriate education?: Yes Instructions: ED Contusion Lower Ext Prescriptions: Oxycodone HCl/Acetaminophen [Percocet 5-325 mg Tablet] 1 - 2 each PO Q6H PRN #14 tablet PRN Reason: pain Ondansetron Odt [Zofran] 4 mg TL Q6H PRN #10 tablet PRN Reason: Nausea / Vomiting Comments: I sent your prescriptions electronically to [facility] in [place]. If not improved in a week follow-up with your doctor for recheck. Return for new or worsening symptoms. I am prescribing a short course of narcotic pain medication for you. These are potentially dangerous and addictive medications that should be used carefully. These medications may constipate you. Take an [id number] stool softener (docusate) twice daily with plenty of water while taking these medications. If you go 24 hours without a bowel movement, take [id number] miralax, per package instructions. Do not drink or drive while taking these medications. If you received narcotic or sedating medications while in the emergency department, do not drive for 24 hours. Store this medication in a safe, secure place and out of reach of children. It is a violation of federal law to give or sell this medication to another person or to use in a manner other than prescribed. The ED will not refill narcotic prescriptions, including prescriptions lost or stolen. To dispose of unwanted medications: 1. [facility] at [address] in [place] has a medication drop box. They accept prescription medications (in pill form) Monday through Monday 9:00 a.m. to 5:00 p.m. 2. The [facility] [employer] accepts prescription medications (in pill form only) for disposal year round. Call for more information. 3. Contact the [facility] for the next [facility] sponsored prescription drug collection event. , [phone], or [phone]; Note that many narcotic pain relievers also contain Tylenol/acetaminophen. Please ensure that your total dose of acetaminophen from all sources does not exceed 3 g (3000 mg) per day. Discharge Date/Time: 08/31/21 22:14
[2021-08-31] MEDS ORDERED: oxyCODONE/ACET 5/325 Prepack 4 PO STA (21:52)
[2021-08-31] MEDS ORDERED: ONDANSETRON ODT 4 MG Prepack 2 TL STA (21:52)
[2021-08-31] MEDS ORDERED: ONDANSETRON ODT 4 MG TABLET TL STA (21:52)
--- NOTE | 2021-09-01 01:00 | XRAY Report ---
PROCEDURE: Tib/Fib RT INDICATIONS: leg inj TECHNIQUE: 2 views of the tibia and fibula were acquired. COMPARISON: None. FINDINGS: Bones: No fractures or dislocations. There is moderate degeneration in the medial compartment of the right knee. No suspicious bony lesions. Soft tissues: No suspicious soft tissue calcifications or masses. IMPRESSION: 1. No fracture or dislocation. Reviewed by: Ricci Salinas MD on 09/01/2021 12:59 AM PDT Approved by: Ricci Salinas MD on 09/01/2021 12:59 AM PDT Station ID: [id number]
== END 2021-08-31 22:14 | disposition home or self-care (01) ==
LOC: ED 20:01
DX: S80.11XA Contusion of right lower leg, initial encounter (principal); W20.8XXA Other cause of strike by thrown, projected or falling object, initial encounter; Y92.007 Garden or yard of unspecified non-institutional (private) residence as the place of occurrence of the external cause; I48.91 Unspecified atrial fibrillation; Z79.01 Long term (current) use of anticoagulants
CPT/HCPCS: 73590; 99282; 99283; A9270; Q0162

== ENCOUNTER 2023-02-22 21:13 | Outpatient (CLI) | payer OTHER | END 2023-02-22 21:14 | disposition critical access hospital (66) | LOC: EMS 21:13 | DX: I48.91 Unspecified atrial fibrillation (principal); R11.0 Nausea; R53.83 Other fatigue | CPT/HCPCS: A0425; A0427 ==

== ENCOUNTER 2023-02-22 21:39 | Emergency (ER) | payer OTHER ==
--- NOTE | 2023-02-22 23:33 | ED Physician Documentation ---
History of Present Illness - Stated complaint Stated Complaint: AFIB - Chief complaint Chief Complaint: Cardiac - History obtained from History obtained from: Patient - Additonal information Additional information: HPI from patient. Patient c/o chest tightness and irregular palpitations c/w previous episodes of atrial fibrillation, onset at approximately 7:30 PM tonight while at home decorating a [place] tree. She recently was started on a medication by her flour blender helper for epigastric pain which patient says is suspected to be related to her pancreas; patient says no testing was undertaken regarding the symptoms. She does no have h/o pancreatic problems and denies heavy/regular drinking. Denies dyspnea. No exacerbating nor ameliorating factors regarding the chest discomfort and palpitations. Review of Systems Cardiac: reports: Chest pain / pressure, Palpitations. denies: Pedal edema, Calf pain Respiratory: reports: Reviewed and negative GI: reports: Abdominal Pain (episodic epigastric but not at this time). 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 : None HEENT: None Psych: None Musculoskeletal: None Derm: None - Past Surgical History Past Surgical History: Yes General: Cholecystectomy Ortho: Other /FIRE PATROLLER: section, Dilation and currettage, Oophrectomy HEENT: Tonsil/Adenoidectomy - Present Medications Home Medications: Ambulatory Orders Medication Instructions Recorded Confirmed Calcium Glucarate [Calcium 1,000 mg PO BID 02/22/23 02/22/23 D-Glucarate] Pancreatin 2 cap PO TID 02/22/23 02/22/23 Sertraline HCl [Zoloft] 75 mg PO DAILY 02/22/23 02/22/23 - Allergies Allergies/Adverse Reactions: Allergies Allergy/AdvReac Type Severity Reaction Status Date / Time peanut Allergy Severe Anaphylaxis Verified 08/31/21 20:37 hydrocodone bitartrate * Allergy Unknown Verified 08/31/21 20:37 [From Vicodin] Penicillins Allergy Unknown Verified 08/31/21 20:37 Sulfa (Sulfonamide Allergy Unknown Verified 08/31/21 20:37 Antibiotics) - Social History Does the pt smoke?: No Smoking Status: Never smoker Does the pt drink ETOH?: Yes Does the pt have substance abuse?: No - Immunizations Immunizations are current?: Yes - POLST Patient has POLST: No POLST Status: Full Code PD ED PE NORMAL - Vitals Vital signs reviewed: Yes - General General: Alert and oriented X 3, No acute distress, Well developed/nourished - Cardiac Cardiac: RRR, No murmur, No gallop, No rub - Respiratory Respiratory: No respiratory distress, Clear bilaterally - Abdomen Abdomen: Soft, Non tender - Extremities Extremities: No edema Results - Vitals Vitals: Oxygen O2 Source Room air - EKG (time done) No standard instances EKG releavant findings:: EKG personally interpreted by author of this note. Relevant findings are: Rate: Rate (enter#) (93) Rhythm: Atrial fibrillation [place]: LAD QRS: LVH Ischemia: Normal ST segments - Labs Labs: Laboratory Tests 02/23/23 02/23/23 00:01 00:01 WBC 5.2 RBC 4.40 Hgb 13.0 Hct 39.9 MCV 90.7 MCH 29.5 MCHC 32.6 RDW 13.8 Plt Count 223 MPV 11.2 H Neut # (Auto) 3.3 Lymph # (Auto) 1.3 L Jenkins # (Auto) 0.5 Eos # (Auto) 0.1 Baso # (Auto) 0.0 Absolute Nucleated RBC 0.00 Nucleated RBC % 0.0 Sodium 139 Potassium 3.8 Chloride 109 Carbon Dioxide 23 Anion Gap 7.0 BUN 16 Creatinine 0.6 Estimated GFR (MDRD) 101 Glucose 111 H Calcium 9.6 Total Bilirubin 0.3 AST 24 ALT 31 Alkaline Phosphatase 57 Troponin I High Sens 4.8 Total Protein 6.8 Albumin 4.0 Globulin 2.8 Albumin/Globulin Ratio 1.4 Lipase 25 - Rads (name of study) chest xray Relevant Findings:: Prelim report reviewed, See rad report PD Medical Decision Making - ED course Complexity details: reviewed results, re-evaluated patient, considered differential, d/w patient ED course: Presents with atrial fibrillation which is seen on EKG and stave hewer. Without intervention, by the time of my H+P she is RRR on cardiac auscultation and is clearly NSR on stave hewer. She does note her symptoms seem to have resolved. No abnormality on CXR. CBC and ER abdominal panel are normal (insignificant finding of glucose 111 noted). Normal hs-cTn. Results d/w patient as are return precautions. Departure - Departure Disposition: 01 Home, Self Care Clinical Impression: Atrial fibrillation Qualifiers: Atrial fibrillation type: paroxysmal Qualified Code(s): I48.0 - Paroxysmal atrial fibrillation Condition: Good Instructions: ED Afib, ED Chest Pain Atypical Unkn Cause Follow-Up: TIESHA NAYLOR MD [Primary Care Provider] - Comments: You were in atrial fibrillation when he first arrived to emergency department tonight, but, without any intervention, you would back into a normal (sinus) rhythm. Because you have been having some upper abdominal pain and neck pain, we have also undertaken blood tests as well as a chest x-ray, and there were no concerning or diagnostic findings on these tests. Follow-up with your primary care provider, next available appointment, for reevaluation. Forms: PCP List Discharge Date/Time: 02/23/23 01:39
[2023-02-23 00:07] LABS: BASOPHILS % (AUTO) 0.8 %; EOSINOPHILS # (AUTO) 0.1 10^3/uL (0.0-0.7); EOSINOPHILS % (AUTO) 1.5 %; HCT - HEMATOCRIT 39.9 % (37.0-47.0); LYMPHOCYTES # (AUTO) 1.3 10^3/uL (1.5-3.5); LYMPHOCYTES % (AUTO) 24.2 %; MEAN CORPUSCULAR HEMOGLOBIN 29.5 pg (27.0-31.0); MEAN CORPUSCULAR HGB CONC 32.6 g/dL (32.0-36.0); MEAN CORPUSCULAR VOLUME 90.7 fL (81.0-99.0); MEAN PLATELET VOLUME 11.2 fL (7.9-10.8); MONOCYTES # (AUTO) 0.5 10^3/uL (0.0-1.0); MONOCYTES % (AUTO) 10.1 %; NEUTROPHILS # (AUTO) 3.3 10^3/uL (1.5-6.6); NEUTROPHILS % (AUTO) 63.2 %; PLT - PLATELET COUNT 223 10^3/uL (130-450); RED CELL DISTRIBUTION WIDTH 13.8 % (12.0-15.0); WHITE BLOOD COUNT 5.2 x10^3/uL (4.8-10.8)
[2023-02-23 00:22] LABS: ALBUMIN/GLOBULIN RATIO 1.4 (1.0-2.2); BILIRUBIN,TOTAL 0.3 mg/dL (0.2-1.0); CALCIUM 9.6 mg/dL (8.5-10.3); CREATININE 0.6 mg/dL (0.6-1.3); POTASSIUM 3.8 mmol/L (3.5-4.5); TOTAL PROTEIN 6.8 g/dL (6.4-8.9)
[2023-02-23 00:28] LABS: TROPONIN I HIGH SENSITIVITY 4.8 ng/L (2.3-14.8)
--- NOTE | 2023-02-23 01:06 | XRAY Report ---
PROCEDURE: Chest 2 View X-Ray INDICATIONS: chest pain TECHNIQUE: 2 views of the chest were acquired. COMPARISON: Chest x-ray 10/16/2020 FINDINGS: Surgical changes and devices: None. Lungs and pleura: No pleural effusions or pneumothorax. Lungs are clear. Mediastinum: Mediastinal contours appear normal. Heart size is normal. Bones and chest wall: No suspicious bony lesions. Overlying soft tissues appear unremarkable. IMPRESSION: No acute cardiopulmonary process. Reviewed by: Dai Warner MD on 02/23/2023 1:04 AM [facility] Approved by: Dai Warner MD on 02/23/2023 1:04 AM [facility] Station ID: [id number]
[2023-02-23 01:17] VITALS: BP 150/69; O2SAT 96
== END 2023-02-23 01:39 | disposition home or self-care (01) ==
LOC: EDUNIT# → ED 21:39
DX: I48.0 Paroxysmal atrial fibrillation (principal)
CPT/HCPCS: 36415; 80053; 83690; 84484; 85025; 93005; 99283; 99284

== ENCOUNTER 2023-08-02 14:11 | Outpatient (CLI) | payer OTHER ==
[2023-08-02 19:44] LABS: BASOPHILS % (AUTO) 0.8 %; EOSINOPHILS % (AUTO) 0.8 %; HCT - HEMATOCRIT 41.8 % (37.0-47.0); HGB - HEMOGLOBIN 12.6 g/dL (12.0-16.0); LYMPHOCYTES % (AUTO) 20.1 %; MEAN CORPUSCULAR HEMOGLOBIN 28.9 pg (27.0-31.0); MEAN CORPUSCULAR HGB CONC 30.1 g/dL (32.0-36.0); MEAN CORPUSCULAR VOLUME 95.9 fL (81.0-99.0); MEAN PLATELET VOLUME 12.2 fL (7.9-10.8); MONOCYTES # (AUTO) 0.4 10^3/uL (0.0-1.0); MONOCYTES % (AUTO) 8.4 %; NEUTROPHILS # (AUTO) 3.6 10^3/uL (1.5-6.6); NEUTROPHILS % (AUTO) 69.7 %; PLT - PLATELET COUNT 231 10^3/uL (130-450); RED BLOOD COUNT 4.36 10^6/uL (4.20-5.40); RED CELL DISTRIBUTION WIDTH 14.1 % (12.0-15.0); WHITE BLOOD COUNT 5.1 x10^3/uL (4.8-10.8)
[2023-08-02 20:07] LABS: ALBUMIN 4.5 g/dL (3.2-5.5); ALBUMIN/GLOBULIN RATIO 1.6 (1.0-2.2); ALKALINE PHOSPHATASE 58 IU/L (42-121); ALT ALANINE AMINOTRANSFERASE 38 IU/L (10-60); AST ASPARTATE AMINOTRANSFERASE 26 IU/L (10-42); BILIRUBIN,TOTAL 0.4 mg/dL (0.2-1.0); BUN - BLOOD UREA NITROGEN 21 mg/dL (6-20); CALCIUM 10.1 mg/dL (8.5-10.3); CARBON DIOXIDE - CO2 25 mmol/L (21-32); CHLORIDE 110 mmol/L (101-111); CREATININE 0.6 mg/dL (0.6-1.3); CRP - C-REACTIVE PROTEIN < 0.5 mg/dL (<0.5); GFR - MDRD 101 (>89); GLUCOSE 95 mg/dL (74-104); SODIUM 137 mmol/L (135-145); TOTAL PROTEIN 7.4 g/dL (6.4-8.9)
[2023-08-02 20:10] LABS: TROPONIN I HIGH SENSITIVITY 3.6 ng/L (2.3-14.8)
== END 2023-08-02 14:12 | disposition home or self-care (01) ==
LOC: LAB.S 14:11
PROVIDERS: ATTEND Registered Nurse
DX: R07.9 Chest pain, unspecified (principal)
CPT/HCPCS: 36415; 80053; 84484; 85025; 86140

== ENCOUNTER 2023-09-20 07:09 | Outpatient (CLI) | payer OTHER ==
[2023-09-20] MEDS ORDERED: DIATRIZOATE MEGLU/DIATRIZO SOD 30 ML BOTTLE PO ONE (07:34)
[2023-09-20] MEDS: DIATRIZOATE MEGLU/DIATRIZO SOD 30 ML BOTTLE PO ONE (08:48)
--- NOTE | 2023-09-20 11:47 | CT Report ---
PROCEDURE: Abdomen/Pelvis WO INDICATIONS: LUQ ABD PAIN TECHNIQUE: A CT scan of the abdomen and pelvis was performed without the use of intravenous contrast. Images we re recorded and evaluated at appropriate window settings. Reformats: coronal and sagittal. For radiat ion dose reduction, the following was used: automated exposure control, adjustment of mA and/or kV ac cording to patient size. COMPARISON: CT abdomen/pelvis 11/13/2019. FINDINGS: Image quality: Diagnostic. Lower chest: Unremarkable. Liver: No contour-deforming mass. Liver is mildly enlarged measuring up to 20 cm in craniocaudal exte nt. Gallbladder: Surgically absent. Biliary tree: No intrahepatic or extrahepatic dilation, accounting for age. Spleen: No splenomegaly. Pancreas: No pancreatic ductal dilation. Adrenals: No adrenal nodule. Kidneys and ureters: No hydronephrosis. No contour-deforming mass. Stomach, bowel and peritoneum: Possible mild circumferential wall thickening in the distal esophagus may indicate esophagitis. No gastric or small bowel dilation. No abnormal wall thickening. No patholo gic free fluid. Retrocecal appendix is within normal limits. Mild colonic diverticulosis without acut e inflammatory changes seen. Lymph nodes: No central or retroperitoneal adenopathy. Vessels: No infrarenal aortic aneurysm. Reproductive organs: Unremarkable. Bladder: Bladder wall thickness is normal, accounting for underdistention. No calcified bladder stone s. Pelvic lymph nodes: No adenopathy by size criteria. Bones: No aggressive osseous abnormality. Grade 1 anterolisthesis of L4-5 secondary to facet hypertro phy. Other: No significant ventral or inguinal hernia. A benign-appearing intramuscular lipoma is seen wit hin the proximal left superficial muscle. IMPRESSION: 1.Mild circumferential wall thickening in the distal esophagus could indicate mild esophagitis. Other burn[place], no acute abnormality is seen in the abdomen or pelvis. 2.Colonic diverticulosis. 3.Hepatomegaly. Reviewed by: Salinas Hein MD on 09/20/2023 11:45 AM PDT Approved by: Salinas Hein MD on 09/20/2023 11:45 AM PDT Station ID: [id number]
== END 2023-09-20 07:10 | disposition home or self-care (01) ==
LOC: DI 07:09
PROVIDERS: ATTEND Family Medicine
DX: R10.12 Left upper quadrant pain (principal); K57.30 Diverticulosis of large intestine without perforation or abscess without bleeding; R16.0 Hepatomegaly, not elsewhere classified; R93.3 Abnormal findings on diagnostic imaging of other parts of digestive tract
CPT/HCPCS: 74176; Q9963